=== PATIENT | female | born 1965 | race Caucasian/White ===

== ENCOUNTER 2025-10-29 10:40 | Emergency (ER) | payer OTHER, SELFPAY ==
--- OUTSIDE RECORDS SUMMARY | 2025-10-09 11:30 | XMS_ITS | Encounter Summary ---
Author Organization [facility] Address [address] [place] [address] Care Team Providers Care Middle Stitcher Name Role Phone Sameer Howard P.A.-C. Primary Care Provider Reason for Referral * MRI/CAT/PET Scan (Routine) - Closed Specialty Diagnoses / Procedures Referred By Omar bassett Referred To Contact Radiology Diagnoses Pain Knee Left Procedures MR Knee Left without IV Contrast Sameer Howard P.A.-C. [address] [place] [address] Phone: tel: fax: [facility] Region Referral ID Status Reason Start Date Expiration Date Visits Re quested Visits Authorized [id number] Closed 10/09/2025 01/09/2027 1 1 H WEIGHER * Outpatient (Routine) - Closed Specialty Diagnoses / Procedures Referred By Omar bassett Referred To Contact Diagnoses Pain Knee Left Procedures DX Knee Left with Flexion and Patella 4 Views Sameer Howard P.A.-C. [address] [place] [address] Phone: tel: fax: [facility] Region Referral ID Status Reason Start Date Expiration Date Visits Re quested Visits Authorized [id number] Closed 10/09/2025 01/09/2027 1 1 H WEIGHER * Outpatient (Routine) - Closed Specialty Diagnoses / Procedures Referred By Omar bassett Referred To Contact Orthopedic Surgery Diagnoses Pain Knee Left Sameer Howard P.A.-C. [address] [place] [address] Phone: tel: fax: [facility] Region Referral ID Status Reason Start Date Expiration Date Visits Re quested Visits Authorized [id number] Closed 10/09/2025 04/10/2027 1 1 Scheduling Instructions Ortho internal referral panel order, imaging before Consult visit H WEIGHER Reason for Visit * Reason Comments Follow-up Discuss lab results. Knee pain from standing at work. Discuss weight. * Appointment Request (Routine) - Closed Specialty Diagnoses / Procedures Referred By Omar bassett Referred To Contact Family Medicine Referral ID Status Reason Start Date Expiration Date Visits Re quested Visits Authorized [id number] Closed 09/26/2025 12/27/2026 1 1 Encounter Details Date Type Department Care Team (Late st Contact Info) Description 10/09/2025 11:30 AM CLOTH WEIGHER Office Visit Department of Family Medicine, [facility], in [place], [place] [address] [place] [phone] Sameer Howard P.A.-C. [address] [place] [phone] Nodule Thyroid (Primary Dx); General Medical Examination Adult; Fasciitis Plantar; Pain Knee Left; Hyperlipidemia Social History Tobacco Use Types Packs/Day Years Used Date Smoking Tobacco: Former Cigarettes 0 Q uit: 2006 Smokeless Tobacco: Never Tobacco Cessation:Counseling Given: Not Answered Alcohol Use Standard Drinks/Week Comments Yes 2 (1 standard drink = 0.6 oz pur e alcohol) Rare Humiliation, Afraid, Rape, and Kick questionnair e Answer Date Recorded Within the last year, have y ou been afraid of your partner or ex-partner? No 11/11/2021 Within the last year, have y ou been humiliated or emotionally abused in other ways by your partner or ex-partner? No Within the last year, have y ou been kicked, hit, slapped, or otherwise physically hurt by your partner or ex-partner? No 11/11/2021 Within the last year, have y ou been raped or forced to have any kind of sexual activity by your partner or ex-partner? No 11/11/2021 Hunger Vital Sign Answer Date Recorded Within the past 12 months, y ou worried that your food would run out before you got the money to buy more. Never true 09/13/20 23 Within the past 12 months, t he food you bought just didn't last and you didn't have money to get more. Never true 09/13/2023 PRAPARE - Transportation Answer Date Re corded In the past 12 months, has l ack of transportation kept you from medical appointments or from getting medications? No 08/27 In the past 12 months, has l ack of transportation kept you from meetings, work, or from getting things needed for daily living? No 09/13/2023 Housing Stability Answer Date Recorded What is your living situation today? I have a [facility] place to live 09/13/2023 Education Answer Date Recorded What is the highest level of school you have completed or the highest degree you have received? Associate degree: occupational, technical, or vocational program 09/17/2019 Comments No Sex and Gender Information Value Date Recorded Sex Assigned at Female 11/01/2021 9:22 PM CLOTH WEIGHER Legal Sex Female 2:38 AM CLOTH WEIGHER Gender Identity Female 03/29/2019 3:05 PM CDT Sexual Orientation Straight 03/29/2019 3: 05 PM CDT Occupation Industry Job Start Date Job End Date Not on file Not on file Not on file Not on file documented as of this encounter Last Filed Vital Signs Vital Sign Reading Time Taken Comments Blood Pressure 112/68 10/09/2025 11:30 AM CLOTH WEIGHER Pulse 67 10/09/2025 11:30 AM CLOTH WEIGHER Temperature 36.5 C (97.7 F) 10/09/2025 11:30 AM CLOTH WEIGHER Respiratory Rate 16 10/09/2025 11:30 AM CLOTH WEIGHER Oxygen Saturation - - Inhaled Oxygen Concentration - - Weight 72.3 kg (159 lb 6.3 oz) 10/09/2025 11:30 AM CLOTH WEIGHER Height 160.5 cm (5' 3.19) 10/09/2025 11:[address] Body Mass Index 28.07 10/09/2025 11:30 AM CLOTH WEIGHER documented in this encounter H&P Notes * Sameer Howard P.A.-C. - 10/09/2025 11:30 AM CST SUBJECTIVE CHIEF COMPLAINT / REASON FOR VISIT Melissa Hale is a 60 y.o. female who presents for evaluation of Follow- up (Discuss lab results. Knee pain from standing at work. Discuss weight.). HISTORY OF PRESENT ILLNESS Melissa presents today for her yearly history and physical. Her is retiring and she may have to change her insurance so she may not be able to come here after the first of the year. She has been struggling with a few different problems that she would like to address. She has had plantar fasciitis she has tried some different shoes as well as some insoles that were not beneficial. She also has some left knee pain that might be from walking out of the ordinary from her plantar fasciitis. This has been bothering her for couple years. He tries to exercise on a regular basis but has limitations. She says that taking this stairs has been difficult. She also has a history of a thyroid nodulethat is she says has been stable. She is due for a mammogram. She has a history of irritable bowel and overall this has been doing much better she sounds as though she has getting benefit from a probiotic that she has been taking Current Medications[1] Allergies[2] MEDICAL HISTORY Problem List[3] Surgical History[4] Social History[5] Family History[6] OBJECTIVE Vitals: 10/09/25 1130 BP: 112/68 BP Location: Left arm Patient Position: Sitting Cuff Size: Regular Pulse: 67 Resp: 16 Temp: 36.5 ??C TempSrc: Temporal Weight: 72.3 kg Height: 160.5 cm Body mass index is 28.07 kg/m??. PHYSICAL EXAMINATION General: Patient appears in no acute distress. ENT: TMs no erythema. Throat no erythema. Neck: No lymphadenopathy. Heart: Regular rate and rhythm. No murmurs. Lungs: Clear to auscultation. Abdomen: Soft and nontender to palpation. Feet: Her pulses are palpable bilaterally. She has discomfort to palpation in the anterior portion of her calcaneus consistent with plantar fasciitis Knees: Her left knee has some discomfort to palpation in the joint line. She has a positive Tdedy sign. ASSESSMENT / PLAN #1 Nodule Thyroid We talked about further evaluating this with a another ultrasound and lab work and she wants to hold off for now #2 General Medical Examination Adult She is due for a mammogram will get this set up. She brought in labs that were done at an outside facility that look good with the exception of some mild elevation of her lipids #3 Fasciitis Plantar I gave her a recommendation for a strap that will help to stretch her plantar fascia and also a compression sleeve that has been beneficial. If her symptoms worsen or not improve she will let us know #4 Pain Knee Left She would like to address this before the end of the year. I am going to do an x-ray today followedby an MRI and follow up with Orthopedics. If surgery would be required for a meniscus injury then am hopeful that this can be done before the end of the year. Today's visit could count as her preop history and physical. She would be ASA class two for surgery #5 Hyperlipidemia She has a strong family history of hyperlipidemia. She has a mild elevation of her LDL cholesterol up to 136. I stressed the importance of continuing to work on her diet and exercise. She wants to avoid statins because of a family history of reactions from statin medicines. Sameer Howard P.A.-C. [1] Current Outpatient Medications Medication Sig Dispense Refill acetaminophen (for_TYLENOL) 500 mg tablet Take 2 tablets (1,000 mg total) by mouth every 6 (six) hours as needed for pain. Not more than 4000 mg in 24 hours. 0 wmeobxz-wvxpweoqwguwy-qpowtpou (for_EXCEDRIN MIGRAINE) 250-250-65 mg per tablet Take 2 tablets by mouth every 6 (six) hours as needed. calcium carbonate-vitamin D3 (Calcium 600 with Vitamin D3) 600 mg-10 mcg (400 unit) tablet,chewableChew 2 tablets daily. cyanocobalamin (vitamin B-12) 1,000 mcg tablet Take 1,000 mcg by mouth daily. UNABLE TO FIND Take by mouth daily. Med Name: Dynamic Biotics- Probiotic Supplement 215mg daily. No current facility-administered medications for this visit. [2] Allergies Allergen Reactions Albuterol Other (see comments) No reaction noted in [facility] Naproxen Other (see comments) No reaction noted in [facility] Penicillins Other (see comments) No reaction noted in [facility] [3] Patient Active Problem List Diagnosis Mixed Irritable Bowel Syndrome Nodule Thyroid Gastro-Esophageal Reflux Disease With Esophagitis Without Bleeding Lesion Of Femoral Nerve Left Lower Limb Hyperlipidemia [4] Past Surgical History: Procedure Laterality Date APPENDECTOMY 1980 SECTION 07/04/1989 SECTION 12/31/1990 SECTION 04/30/1997 COLONOSCOPY 11/06/2017 Repeat in 10 years. [place], [place]. 2day miralax prep, quality good. CYSTOSCOPY 06/29/2011 ESOPHAGOSCOPY / EGD 11/06/2017 [place], [place]. FINE NEEDLE ASPIRATION Right 09/18/2007 Right mid thyroid nodule. Benign. HYSTERECTOMY 04/10/1998 LOOP ELECTRO EXCISION OF CERVIX 03/11/1998 TOTAL HYSTERECTOMY [5] Social History Tobacco Use Smoking status: Former Current packs/day: 0.00 Types: Cigarettes Quit date: 2005 Years since quittin.8 Smokeless tobacco: Never Vaping Use Vaping status: never used Substance Use Topics Alcohol use: Yes Alcohol/week: 2.0 standard drinks of alcohol Types: 2 Cans of beer per week Comment: Rare Drug use: Never [6] Family History Problem Relation Name Age of Onset Hypothyroidism Mother Hypertension Mother Hypothyroidism Sister Cervical cancer Sister Pancreatic cancer Grandfather H WEIGHER documented in this encounter Plan of Treatment Scheduled Referrals Name Type Priority Associated Diagnoses Order Schedule Orthopedic Surgery - Knee (no prior replacement) surgical consult (clinic) Outpatient Referral Routine Pain Knee Left Expected: 10/09/2025 (Approximate), Expires: 01/09/2027 documented as of this encounter Results * MR Knee Left without IV Contrast (10/14/2025 2:04 PM CLOTH WEIGHER) Anatomical Region Laterality Modality Lower Extremity, Knee, Muscu loskeletal RST LOS, Musculoskeletal ARZ LOS, Muskuloskeletal FLA LOS Left Magne tic Resonance Impressions 10/14/2025 2:42 PM CLOTH WEIGHER 1. Horizontal tear lateral meniscus communicating with the femoral articular surface. 2. Intrasubstance horizontal tear medial meniscus without appreciable communication to an articular surface. 3. 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 4. Small knee joint effusion. Narrative 10/14/2025 2:42 PM CLOTH WEIGHER EXAM: MR KNEE LEFT WITHOUT IV CONTRAST COMPARISON:X-ray September 2025 FINDINGS: Normal anterior cruciate ligament. Normal posterior cruciate ligament. Normal medial collateral ligament. Normal lateral collateral ligament. Normal patellar and distal quadriceps tendons. Intrasubstance horizontal tear medial meniscus posterior horn/body junction (series 6 image 9) without appreciable communication to an articular surface. Horizontal tear lateral meniscal body and anterior horn communicating with the femoral articular surface (for example series 6 image 15). Medial Compartment: Moderate degeneration with grade II/III chondromalacia of weightbearing articular cartilage and degenerative marginal osteophyte formation. Lateral Compartment: Mild degeneration with generally low-grade chondromalacia and small marginal osteophytes. Patellofemoral Compartment: Moderate degeneration with grade II/III chondromalacia patellar eminence and medial patellar facet. Small marginal osteophytes. Greater than typical quantity of knee joint fluid, consistent with a small effusion. No popliteal cyst. No significant muscle atrophy or intramuscular edema. No evidence of acute or healing fracture. No aggressive appearing skeletal lesion. Procedure Note Braden Garcia M.D. - 10/14/2025 EXAM: MR KNEE LEFT WITHOUT IV CONTRAST COMPARISON:X-ray September 2025 FINDINGS: Normal anterior cruciate ligament. Normal posterior cruciateligament. Normal medial collateral ligament. Normal lateral collateralligament. Normal patellar and distal quadriceps tendons. Intrasubstance horizontal tear medial meniscus posterior horn/bodyjunction (series 6 image 9) without appreciable communication to anarticular surface. Horizontal tear lateral meniscal body and anterior horncommunicating with the femoral articular surface (for example series 6image 15). Medial Compartment: Moderate degeneration with grade II/III chondromalaciaof weightbearing articular cartilage and degenerative marginal osteophyteformation. Lateral Compartment: Mild degeneration with generally low-gradechondromalacia and small marginal osteophytes. Patellofemoral Compartment: Moderate degeneration with grade II/IIIchondromalacia patellar eminence and medial patellar facet. Small marginalosteophytes. Greater than typical quantity of knee joint fluid, consistent with a smalleffusion. No popliteal cyst. No significant muscle atrophy orintramuscular edema. No evidence of acute or healing fracture. No aggressive appearing skeletallesion. IMPRESSION: 1. Horizontal tear lateral meniscus communicating with the femoralarticular surface. 2. Intrasubstance horizontal tear medial meniscus without appreciablecommunication to an articular surface. 3. 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 4. Small knee joint effusion. us Sameer Howard P.A.-C. IMG MRI PROCEDURES Fin al Result * DX Knee Left with Flexion and Patella 4 Views (10/09/2025 12:46 PM CLOTH WEIGHER) Anatomical Region Laterality Modality Lower Extremity, Knee, Muscu loskeletal RST LOS, Musculoskeletal ARZ LOS, Muskuloskeletal FLA LOS Left Digit al Radiography Impressions 10/09/2025 1:29 PM CLOTH WEIGHER No appreciable fracture. Moderate knee joint effusion. 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 Narrative 10/09/2025 1:29 PM CLOTH WEIGHER EXAM: DX KNEE LEFT FLEXION AND PATELLA 4 VIEWS COMPARISON: None FINDINGS: No appreciable fracture. No dislocation. Joint spaces appear intact. Mild to moderate tricompartmental joint space tearing with subtle osteophytic spurring. Moderate knee joint effusion. No patellar tilt or subluxation. Procedure Note Levi Goldberg M.D. - 10/09/2025 EXAM: DX KNEE LEFT FLEXION AND PATELLA 4 VIEWS COMPARISON: None FINDINGS: No appreciable fracture. No dislocation. Joint spaces appear intact. Mildto moderate tricompartmental joint space tearing with subtle osteophyticspurring. Moderate knee joint effusion. No patellar tilt or subluxation. IMPRESSION: No appreciable fracture. Moderate knee joint effusion. Mild to moderateosteoarthritic changes of the knee. Sameer Howard P.A.-C. IMG DIAGNOSTIC IMAGING PROCEDURES Final Result documented in this encounter Visit Diagnoses Diagnosis Nodule Thyroid- Primary General Medical Examination Adult Fasciitis Plantar Pain Knee Left Hyperlipidemia Pain Knee Left Pain Knee Left documented in this encounter Care Teams Middle Stitcher Relationship Specialty Start Date End Date Sameer Howard P.A.-C. [address] [place] [phone] PCP - General Family Medicine 09/16/19 documented as of this encounter
--- OUTSIDE RECORDS SUMMARY | 2025-10-09 12:18 | XMS_ITS | Encounter Summary ---
Author Organization [facility] Address [address] [place] [address] Care Team Providers Care Critical Care Unit Nurse Name Role Phone Sameer Howard P.A.-C. Primary Care Provider Reason for Referral * Outpatient (Routine) - Closed Specialty Diagnoses / Procedures Referred By Omar bassett Referred To Contact Diagnoses Pain Knee Left Procedures DX Knee Left with Flexion and Patella 4 Views Sameer Howard P.A.-C. [address] [place] [address] Phone: tel: fax: [facility] Region Referral ID Status Reason Start Date Expiration Date Visits Re quested Visits Authorized [id number] Closed 10/09/2025 01/09/2027 1 1 ING MACHINE UPKEEP MECHANIC Reason for Visit * Outpatient (Routine) - Closed Specialty Diagnoses / Procedures Referred By Omar bassett Referred To Contact Diagnoses Pain Knee Left Procedures DX Knee Left with Flexion and Patella 4 Views Sameer Howard P.A.-C. [address] [place] [address] Phone: tel: fax: [facility] Region Referral ID Status Reason Start Date Expiration Date Visits Re quested Visits Authorized [id number] Closed 10/09/2025 01/09/2027 1 1 Encounter Details Date Type Department Care Team (Latest Contact Info) Description 10/09/2025 12:18 PM FORMING MACHINE UPKEEP MECHANIC - 10/09/2025 11:59 PM FORMING MACHINE UPKEEP MECHANIC Hospital Encounter Department of Radiology in [place], [place] [address] [place] [phone] Sameer Howard P.A.-C. [address] [place] [phone] Pain Knee Left Discharge Disposition: Home or Self Care Social History Tobacco Use Types Packs/Day Years Used Date Smoking Tobacco: Former Cigarettes 0 Q uit: 2006 Smokeless Tobacco: Never Alcohol Use Standard Drinks/Week Comments Yes 2 [...] your living situation today? I have a [facility] place to live 09/13/2023 Education Answer Date Recorded What is the highest level of school you have completed or the highest degree you have received? Associate degree: occupational, technical, or vocational program 09/17/2019 Comments No Sex and Gender Information Value Date Recorded Sex Assigned at Female 11/01/2021 9:22 PM FORMING MACHINE UPKEEP MECHANIC Legal Sex Female 2:38 AM FORMING MACHINE UPKEEP MECHANIC Gender Identity Female 03/29/2019 3:05 PM CDT Sexual Orientation Straight 03/29/2019 3: 05 PM CDT Occupation Industry Job Start Date Job End Date Not on file Not on file Not on file Not on file documented as of this encounter Medications at Time of Discharge acetaminophen (for_TYLENOL) 500 mg tablet Take 2 tablets (1,000 mg total) by mouth every 6 (six) hours as needed for pain. Not more than 4000 mg in 24 hours. 0 02/16/2018 aspirin-acetamin ophen-caffeine (for_EXCEDRIN MIGRAINE) 250-250-65 mg per tablet Take 2 tablets by mouth every 6 (six) hours as needed. 09/09/2014 calcium carbonate-vitami n D3 (Calcium 600 with Vitamin D3) 600 mg-10 mcg (400 unit) tablet,chewable Chew 2 tablets daily. cyanocobalamin (vitamin B-12) 1,000 mcg tablet Take 1,000 mcg by mouth daily. UNABLE TO FIND Take by mouth daily. Med Name: Dynamic Biotics- Probiotic Supplement 215mg daily. documented as of this encounter Plan of Treatment Not on file documented as of this encounter Procedures Procedure Name Priority Date/Time Associated Diagnosis Comments DX KNEE LEFT FLEXION AND PATELLA 4 VIEWS RAD - Routine (most inpatients and all outpatients) 10/09/2025 12:46 PM FORMING MACHINE UPKEEP MECHANIC Pain Knee Left documented in this encounter Results * DX Knee Left with Flexion and Patella 4 Views (10/09/2025 12:46 PM FORMING MACHINE UPKEEP MECHANIC) Anatomical Region Laterality Modality Lower Extremity, Knee, Muscu loskeletal RST LOS, Musculoskeletal ARZ LOS, Muskuloskeletal FLA LOS Left Digit al Radiography Impressions 10/09/2025 1:29 PM FORMING MACHINE UPKEEP MECHANIC No appreciable fracture. Moderate knee joint effusion. 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 Narrative 10/09/2025 1:29 PM FORMING MACHINE UPKEEP MECHANIC EXAM: DX KNEE LEFT FLEXION AND PATELLA [...] documented in this encounter Visit Diagnoses Diagnosis Pain Knee Left documented in this encounter Care Teams Critical Care Unit Nurse Relationship Specialty Start Date End Date Sameer Howard P.A.-C. [address] [place] [phone] PCP - General Family Medicine 09/16/19 documented as of this encounter
--- OUTSIDE RECORDS SUMMARY | 2025-10-14 12:55 | XMS_ITS | Encounter Summary ---
Author Organization [facility] Address [address] [place] [address] Care Team Providers Care Video Rental Clerk Name Role Phone Sameer Howard P.A.-C. Primary Care Provider Reason for Referral * MRI/CAT/PET Scan (Routine) - Closed Specialty Diagnoses / Procedures Referred By Omar bassett Referred To Contact Radiology Diagnoses Pain Knee Left Procedures MR Knee Left without IV Contrast Sameer Howard P.A.-C. [address] [place] [phone] Phone: tel: fax: [facility] Region Referral ID Status Reason Start Date Expiration Date Visits Re quested Visits Authorized [id number] Closed 10/09/2025 01/09/2027 1 1 RETAILER Reason for Visit * MRI/CAT/PET Scan (Routine) - Closed Specialty Diagnoses / Procedures Referred By Omar bassett Referred To Contact Radiology Diagnoses Pain Knee Left Procedures MR Knee Left without IV Contrast Sameer Howard P.A.-CJuhi [address] [place] [address] Phone: tel: fax: [facility] Region Referral ID Status Reason Start Date Expiration Date Visits Re quested Visits Authorized [id number] Closed 10/09/2025 01/09/2027 1 1 Encounter Details Date Type Department Care Team (Latest Contact Info) Description 10/14/2025 12:55 PM WEB RETAILER - 10/14/2025 11:59 PM WEB RETAILER Hospital Encounter Department of Radiology in [place], [place] [address], [place] [phone] Sameer Howard P.A.-C. [address] [place] [phone] Pain Knee Left Discharge Disposition: Home or Self Care Social History Tobacco Use Types Packs/Day Years Used Date Smoking Tobacco: Former Cigarettes 0 Q uit: 2005 Smokeless Tobacco: Never Alcohol Use Standard Drinks/Week [...] the money to buy more. Never true 10/13/20 25 Within the past 12 months, t he food you bought just didn't last and you didn't have money to get more. Never true 10/13/2025 PRAPARE - Transportation Answer Date Re corded In the past 12 months, has l ack of transportation kept you from medical appointments or from getting medications? No 09/27 In the past 12 months, has l ack of transportation kept you from meetings, work, or from getting things needed for daily living? Yes 10/13/2025 [facility] Utilities Answer Date Recorded In the past 12 months has th e electric, gas, oil, or water company threatened to shut off services in your home? No 10/13/2025 Housing Stability Answer Date Recorded What is your living situation today? I have a [place] place to live 10/13/2025 Education Answer Date Recorded What is the highest level of school you have completed or the highest degree you have received? Associate degree: occupational, technical, or vocational program 09/17/2019 Comments No Sex and Gender Information Value Date Recorded Sex Assigned at Female 11/01/2021 9:22 PM WEB RETAILER Legal Sex Female 2:38 AM WEB RETAILER Gender Identity Female 03/29/2019 3:05 PM CDT [...] Procedure Name Priority Date/Time Associated Diagnosis Comments MR KNEE LEFT WITHOUT IV CONTRAST RAD - Routine (most inpatients and all outpatients) 10/14/2025 2:04 PM WEB RETAILER Pain Knee Left documented in this encounter Results * MR Knee Left without IV Contrast (10/14/2025 2:04 PM WEB RETAILER) Anatomical Region Laterality Modality Lower Extremity, Knee, Muscu loskeletal RST LOS, Musculoskeletal ARZ LOS, Muskuloskeletal FLA LOS Left Magne tic Resonance Impressions 10/14/2025 2:42 PM WEB RETAILER 1. Horizontal tear lateral meniscus communicating with the femoral articular surface. 2. Intrasubstance horizontal tear medial meniscus without appreciable communication to an articular surface. 3. 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 4. Small knee joint effusion. Narrative 10/14/2025 2:42 PM WEB RETAILER EXAM: MR KNEE LEFT WITHOUT IV CONTRAST [...] tricompartment degeneration. 4. Small knee joint effusion. Sameer Howard P.A.-C. IMG MRI PROCEDURES Fin al Result documented in this encounter Visit Diagnoses Diagnosis Pain Knee Left documented in this encounter Care Teams Video Rental Clerk Relationship Specialty Start Date End Date Sameer Howard P.A.-C. [address] [place] [phone] PCP - General Family Medicine 09/16/19 documented as of this encounter
--- OUTSIDE RECORDS SUMMARY | 2025-10-22 15:30 | XMS_ITS | Encounter Summary ---
Author Organization [facility] Address [address] [place] [address] Care Team Providers Care Still Operator Helper Name Role Phone Sameer Howard P.A.-C. Primary Care Provider Reason for Visit * Reason Comments Dizziness Had a fall in the ower yesterday and has been dizzy since. * Appointment Request (Routine) - Closed Specialty Diagnoses / Procedures Referred By Omar bassett Referred To Contact Family Medicine Referral ID Status Reason Start Date Expiration Date Visits Re quested Visits Authorized [id number] Closed 10/21/2025 01/21/2027 1 1 Encounter Details Date Type Department Care Team (Late st Contact Info) Description 10/22/2025 3:30 PM WASH TEST CHECKER Office Visit Department of Family Medicine, [facility], in [place], [place] [address] [place] [phone] Sameer Howard P.A.-C. [address] [place] [phone] Vertigo (Primary Dx); Vertigo Benign Paroxysmal Positional Left Social History Tobacco Use Types Packs/Day Years Used Date Smoking Tobacco: Former Cigarettes 0 Q uit: 2006 Smokeless Tobacco: Never Alcohol Use Standard Drinks/Week Comments Yes 4 (1 standard drink = 0.6 oz pur [...] things needed for daily living? Yes 10/13/2025 [facility] Utilities Answer Date Recorded In the past 12 months has [facility] electric, gas, oil, or water company threatened to shut off services in your home? No 10/13/2025 Housing Stability Answer Date Recorded What is your living situation today? I have a [facility] place to live 10/13/2025 Education Answer Date Recorded What is the highest level of school you have completed or the highest degree you have received? Associate degree: occupational, technical, or vocational program 09/17/2019 Comments No Sex and Gender Information Value Date Recorded Sex Assigned at Female 11/01/2021 9:22 PM WASH TEST CHECKER Legal Sex Female 2:38 AM WASH TEST CHECKER Gender Identity Female 03/29/2019 3:05 PM CDT Sexual Orientation Straight 03/29/2019 3: 05 PM CDT Occupation Industry Job Start Date Job End Date Not on file Not on file Not on file Not on file documented as of this encounter Last Filed Vital Signs Vital Sign Reading Time Taken Comments Blood Pressure 108/71 10/22/2025 3:16 PM WASH TEST CHECKER Pulse 63 10/22/2025 3:16 PM WASH TEST CHECKER Temperature 36.6 C (97.9 F) 10/22/2025 3:16 PM WASH TEST CHECKER Respiratory Rate 20 10/22/2025 3:1 6 PM WASH TEST CHECKER Oxygen Saturation - - Inhaled Oxygen Concentration - - Weight 71.2 kg (156 lb 15.5 oz) 10/22/2025 3:16 PM WASH TEST CHECKER Height 162 cm (5' 3.78) 10/22/2025 3:16 PM WASH TEST CHECKER Body Mass Index 27.13 10/22/2025 3:16 PM WASH TEST CHECKER documented in this encounter Patient Instructions * Attachments The following attachments cannot be sent through Care Everywhere. * Exercises for Horizontal Canal Benign Paroxysmal Positional Vertigo (BPPV) documented in this encounter Progress Notes * Sameer Howard P.A.-C. - 10/22/2025 3:30 PM CST SUBJECTIVE CHIEF COMPLAINT / REASON FOR VISIT Melissa Hale is a 60 y.o. female who presents for evaluation of Dizziness (Had a fall in the shower yesterday and has been dizzy since. ). HISTORY OF PRESENT ILLNESS Melissa presents today following a near syncopal episode. She got up in the morning yesterday and wasin the shower she felt a sudden onset of lightheadedness and fell down in his shower but said she never passed out. She then stood up and felt lightheaded again but she was able to finish her shower. She says she still has a little tired since then she never hit her head. She does have a history of migraines but they have not been particularly worse as of recently. She says she tries to keep well hydrated over the last day she has drank about 74 oz of water. She says her urine is normally pretty clear she denies any other associated symptoms other than the ongoing fatigue she does have a history of a thyroid nodule. OBJECTIVE Vitals: 10/22/25 1516 BP: 108/71 BP Location: Left arm Patient Position: Sitting Cuff Size: Large Pulse: 63 Resp: 20 Temp: 36.6 ??C TempSrc: Temporal Weight: 71.2 kg Height: 162 cm Body mass index is 27.13 kg/m??. PHYSICAL EXAMINATION General: Patient appears in no acute distress. ENT: TMs no erythema. Throat no erythema. Neck: No lymphadenopathy. No thyroid masses. Heart: Regular rate and rhythm. No murmurs. Lungs: Clear to auscultation. Abdomen: Soft and nontender to palpation. I did do the Horicon-Hallpike maneuver which was positive for significant vertigo with her neck hyperextended in the leftward gaze. In an attempt to reproduce this I was unable to so I did not complete the Meg maneuver ASSESSMENT / PLAN #1 Vertigo I am going to give her some meclizine for her vertigo. 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 If her symptoms worsen at all or do not continue to improve over the next couple days she will let us know and we will consider further evaluation with possible imaging. Today I will check some blood work to look for other possible etiologies of her symptoms including a CBC metabolic panel and TSH #2 Vertigo Benign Paroxysmal Positional Left I gave her the information do the Meg maneuver if her symptoms reoccur. Total time spent 30 minutes Sameer Howard P.A.-C. TEST CHECKER documented in this encounter Plan of Treatment Not on file documented as of this encounter Results * Basic Metabolic Panel (10/22/2025 4:01 PM WASH TEST CHECKER) Potassium, P 5.0 3.6 - 5.2 mmol/L 10/22/2025 5:58 PM WASH TEST CHECKER OWAT Sodium, P 140 135 - 145 mmol/L 10/22/2025 5:58 PM WASH TEST CHECKER OWAT Chloride, P 107 98 - 107 mmol/L 10/22/2025 5:58 PM WASH TEST CHECKER OWAT Bicarbonate, P 24 22 - 29 mmol/L 10/22/2025 5:58 PM WASH TEST CHECKER OWAT Anion Gap, P 9 7 - 15 10/22/2025 5:58 PM WASH TEST CHECKER OWAT BUN (Blood Urea Nitrogen), P 18 6 - 21 mg/dL 10/22/2025 5:58 PM WASH TEST CHECKER OWAT Creatinine 0.73 0.59 - 1.04 mg/dL 10/22/2025 5:58 PM WASH TEST CHECKER OWAT Estimated GFR (eGFR) >90 >=60 mL/min/BSA 10/22/2025 5:58 PM WASH TEST CHECKER OWAT Comment: Estimated GFR calculated using the 2020 CKD_EPI creatinine equation. Calcium, Total, P 9.8 8.8 - 10.2 mg/dL 10/22/2025 5:58 PM WASH TEST CHECKER OWAT Glucose, P 97 70 - 140 mg/dL 10/22/2025 5:58 PM WASH TEST CHECKER OWAT Blood (Blood, Venous) 10/22/2025 4:01 PM WASH TEST CHECKER 10/22/2025 5:31 PM WASH TEST CHECKER us Sameer Howard P.A.-C. LAB BLOOD ADD-ON Final Result [facility] [address] [address], [facility] OWAT [facility] in [place] [address] [place] [address] * CBC with Differential, Blood (10/22/2025 4:01 PM WASH TEST CHECKER) Hemoglobin 14.0 11.6 - 15.0 g/dL 10/22/2025 5:35 PM WASH TEST CHECKER OWAT Hematocrit 42.8 35.5 - 44.9 % 10/22/2025 5:35 PM WASH TEST CHECKER OWAT Erythrocytes 4.71 3.92 - 5.13 x10(12)/L 10/22/2025 5:35 PM WASH TEST CHECKER OWAT MCV 90.9 78.2 - 97.9 fL 10/22/2025 5:35 PM WASH TEST CHECKER OWAT RBC Distrib Width 13.1 12.2 - 16.1 % 10/22/2025 5:35 PM WASH TEST CHECKER OWAT Platelet Count 223 157 - 371 x10(9)/L 10/22/2025 5:35 PM WASH TEST CHECKER OWAT Leukocytes 6.4 3.4 - 9.6 x10(9)/L 10/22/2025 5:35 PM WASH TEST CHECKER OWAT Neutrophils 3.16 1.56 - 6.45 x10(9)/L 10/22/2025 5:35 PM WASH TEST CHECKER OWAT Lymphocytes 2.72 0.95 - 3.07 x10(9)/L 10/22/2025 5:35 PM WASH TEST CHECKER OWAT Monocytes 0.39 0.26 - 0.81 x10(9)/L 10/22/2025 5:35 PM WASH TEST CHECKER OWAT Eosinophils 0.12 0.03 - 0.48 x10(9)/L 10/22/2025 5:35 PM WASH TEST CHECKER OWAT Basophils 0.05 0.01 - 0.08 x10(9)/L 10/22/2025 5:35 PM WASH TEST CHECKER OWAT Blood (Blood, Venous) 10/22/2025 4:01 PM WASH TEST CHECKER 10/22/2025 5:31 PM WASH TEST CHECKER us Sameer Richmond.-C. LAB BLOOD ADD-ON Final Result [facility] [address] [address], [facility] OWAT [facility] in [place] [address] [place] [id number] * S-TSH (Thyroid-Stimulating Hormone - Sensitive) (10/22/2025 4:01 PM WASH TEST CHECKER) TSH, Sensitive 1.2 0.3 - 4.2 mIU/L 10/22/2025 6:07 PM WASH TEST CHECKER OWAT Blood (Blood, Venous) 10/22/2025 4:01 PM WASH TEST CHECKER 10/22/2025 5:31 PM WASH TEST CHECKER us Sameer JaneA.-C. LAB BLOOD ADD-ON Final Result [facility] [address] [place] [address], [facility] in [place] [address] [place] [address] documented in this encounter Visit Diagnoses Diagnosis Vertigo- Primary Vertigo Benign Paroxysmal Positional Left documented in this encounter Care Teams Still Operator Helper Relationship Specialty Start Date End Date Sameer Howard P.A.-C. [address] [place] [phone] PCP - General Family Medicine 09/16/19 documented as of this encounter
--- OUTSIDE RECORDS SUMMARY | 2025-10-22 15:54 | XMS_ITS | Encounter Summary ---
Author Organization [facility] Address [address] [place] [address] Care Team Providers Care Senior Cognos Developer Name Role Phone Sameer Howard P.A.-C. Primary Care Provider Encounter Details Date Type Department Care Team (Latest Contact Info) Description 10/22/2025 3:54 PM BARREL WATERER - 10/22/2025 11:59 PM [facility] Hospital Encounter Department of Laboratory Medicine in [place], [place] [address] [place] [phone] Sameer Howard P.A.-C. [address] [place] [phone] Vertigo Discharge Disposition: Home or Self Care Social [...] things needed for daily living? Yes 10/13/2025 [facility] Utilities Answer Date Recorded In the past 12 months has [employer] electric, gas, oil, or water company threatened to shut off services in your home? No 10/13/2025 Housing Stability Answer Date Recorded What is your living situation today? I have a [facility] place to live 10/13/2025 Education Answer Date Recorded What is the highest level of school you have completed or the highest degree you have received? Associate degree: occupational, technical, or vocational program 09/17/2019 Comments No Sex and Gender Information Value Date Recorded Sex Assigned at Female 11/01/2021 9:22 PM BARREL WATERER Legal Sex Female 2:38 AM BARREL WATERER Gender Identity Female 03/29/2019 3:05 PM CDT [...] tablet Take 1,000 mcg by mouth daily. meclizine (Antivert) 25 mg tablet Take 1 tablet (25 mg total) by mouth 3 (three) times a day as needed for dizziness. 30 tablet 10/22/2025 UNABLE TO FIND Take by mouth daily. Med Name: [employer]- Probiotic Supplement 215mg daily. documented as of this encounter Plan of Treatment Not on file documented as of this encounter Procedures Procedure Name Priority Date/Time Associated Diagnosis Comments CBC WITH DIFFERENTIAL, B Routine 10/22/2025 4:01 PM BARREL WATERER Vertigo THYROID-STIMULATING HORMONE-SENSITIVE (S-TSH) Routine 10/22/2025 4:01 PM BARREL WATERER Vertigo BASIC METABOLIC PANEL, S/P Routine 10/22/2025 4:01 PM BARREL WATERER Vertigo documented in this encounter Results * Basic Metabolic Panel (10/22/2025 4:01 PM BARREL WATERER) Potassium, P 5.0 3.6 - 5.2 mmol/L 10/22/2025 5:58 PM BARREL WATERER OWAT Sodium, P 140 135 - 145 mmol/L 10/22/2025 5:58 PM BARREL WATERER OWAT Chloride, P 107 98 - 107 mmol/L 10/22/2025 5:58 PM BARREL WATERER OWAT Bicarbonate, P 24 22 - 29 mmol/L 10/22/2025 5:58 PM BARREL WATERER OWAT Anion Gap, P 9 7 - 15 10/22/2025 5:58 PM BARREL WATERER OWAT BUN (Blood Urea Nitrogen), P 18 6 - 21 mg/dL 10/22/2025 5:58 PM BARREL WATERER OWAT Creatinine 0.73 0.59 - 1.04 mg/dL 10/22/2025 5:58 PM BARREL WATERER OWAT Estimated GFR (eGFR) >90 >=60 mL/min/BSA 10/22/2025 5:58 PM BARREL WATERER OWAT Comment: Estimated GFR calculated using the 2020 CKD_EPI creatinine equation. Calcium, Total, P 9.8 8.8 - 10.2 mg/dL 10/22/2025 5:58 PM BARREL WATERER OWAT Glucose, P 97 70 - 140 mg/dL 10/22/2025 5:58 PM BARREL WATERER OWAT Blood (Blood, Venous) 10/22/2025 4:01 PM BARREL WATERER 10/22/2025 5:31 PM BARREL WATERER us Sameer Howard P.A.-C. LAB BLOOD ADD-ON Final Result [facility] [address], [place] [address], [facility] OWAT [facility] [place] [address], [place] [address] * CBC with Differential, Blood (10/22/2025 4:01 PM BARREL WATERER) Hemoglobin 14.0 11.6 - 15.0 g/dL 10/22/2025 5:35 PM BARREL WATERER OWAT Hematocrit 42.8 35.5 - 44.9 % 10/22/2025 5:35 PM BARREL WATERER OWAT Erythrocytes 4.71 3.92 - 5.13 x10(12)/L 10/22/2025 5:35 PM BARREL WATERER OWAT MCV 90.9 78.2 - 97.9 fL 10/22/2025 5:35 PM BARREL WATERER OWAT RBC Distrib Width 13.1 12.2 - 16.1 % 10/22/2025 5:35 PM BARREL WATERER OWAT Platelet Count 223 157 - 371 x10(9)/L 10/22/2025 5:35 PM BARREL WATERER OWAT Leukocytes 6.4 3.4 - 9.6 x10(9)/L 10/22/2025 5:35 PM BARREL WATERER OWAT Neutrophils 3.16 1.56 - 6.45 x10(9)/L 10/22/2025 5:35 PM BARREL WATERER OWAT Lymphocytes 2.72 0.95 - 3.07 x10(9)/L 10/22/2025 5:35 PM BARREL WATERER OWAT Monocytes 0.39 0.26 - 0.81 x10(9)/L 10/22/2025 5:35 PM BARREL WATERER OWAT Eosinophils 0.12 0.03 - 0.48 x10(9)/L 10/22/2025 5:35 PM BARREL WATERER OWAT Basophils 0.05 0.01 - 0.08 x10(9)/L 10/22/2025 5:35 PM BARREL WATERER OWAT Blood (Blood, Venous) 10/22/2025 4:01 PM BARREL WATERER 10/22/2025 5:31 PM BARREL WATERER us Sameer Howard P.A.-C. LAB BLOOD ADD-ON Final Result Performing Organization Address [facility]/ZIP Co de Phone Number [facility] [address], [place] [address], [facility] [place] [address], [place] [address] * S-TSH (Thyroid-Stimulating Hormone - Sensitive) (10/22/2025 4:01 PM BARREL WATERER) TSH, Sensitive 1.2 0.3 - 4.2 mIU/L 10/22/2025 6:07 PM BARREL WATERER OWAT Blood (Blood, Venous) 10/22/2025 4:01 PM BARREL WATERER 10/22/2025 5:31 PM BARREL WATERER us Sameer Howard P.A.-C. LAB BLOOD ADD-ON Final Result Performing Organization Address [facility]/ZIP Co de Phone Number [facility] [address] [place] [address], [facility] [place] [address], [place] [address] documented in this encounter Visit Diagnoses Diagnosis Vertigo documented in this encounter Care Teams Senior Cognos Developer Relationship Specialty Start Date End Date Sameer Howard P.A.-C. [address] [place] [address], [place] [phone] PCP - General Family Medicine 09/16/19 documented as of this encounter
--- OUTSIDE RECORDS SUMMARY | 2025-10-24 11:30 | XMS_ITS | Encounter Summary ---
Author Organization [facility] Address [address] [place] [address] Care Team Providers Care Control Clerk Repairs Name Role Phone Sameer Howard P.A.-C. Primary Care Provider Reason for Referral * Outpatient (Routine) - Authorized Specialty Diagnoses / Procedures Referred By Contac t Referred To Contact Diagnoses Pain Knee Left Chondromalacia Left Knee Deranged Medial Meniscus Left Deranged Lateral Meniscus Left Procedures kae-ietc-thpmjmow-elbow arthrocentesis: L knee joint Levi Gonzalez M.D. [address] [place] [address] Phone: tel: fax: [facility] Region Referral ID Status Reason Start Date Expiration Date V isits Requested Visits Authorized [id number] Authorized 10/24/2025 01/24/2027 1 1 NETMAKER APPRENTICE Reason for Visit * Reason Comments Pain Swelling * Outpatient (Routine) - Closed Specialty Diagnoses / Procedures Referred By Contac t Referred To Contact Orthopedic Surgery Diagnoses Pain Knee Left Sameer Howard P.A.-CJuhi [address] [place] [phone] Phone: tel: fax: [facility] Region Referral ID Status Reason Start Date Expiration Date Visits Re quested Visits Authorized [id number] Closed 10/09/2025 04/10/2027 1 1 Encounter Details Date Type Department Care Team (Latest Contact Info) Description 10/24/2025 11:30 AM CABINETMAKER APPRENTICE Comprehensive Visit Department of Orthopedic Surgery in [place], [place] [address] [place] [address] Levi Gonzalez M.D. [address] [place] [address] Pain Knee Left (Primary Dx); Chondromalacia Left Knee; Deranged Medial Meniscus Left; Deranged Lateral Meniscus Left Social History Tobacco Use Types Packs/Day [...] things needed for daily living? Yes 10/13/2025 [facility] Utilities Answer Date Recorded In the past 12 months has th e electric, gas, oil, or water company threatened to shut off services in your home? No 10/13/2025 Housing Stability Answer Date Recorded What is your living situation today? I have a [facility] place to live 10/13/2025 Education Answer Date Recorded What is the highest level of school you have completed or the highest degree you have received? Associate degree: occupational, technical, or vocational program 09/17/2019 Comments No Sex and Gender Information Value Date Recorded Sex Assigned at Female 11/01/2021 9:22 PM CABINETMAKER APPRENTICE Legal Sex Female 2:38 AM CABINETMAKER APPRENTICE Gender Identity Female 03/29/2019 3:05 PM CDT Sexual Orientation Straight 03/29/2019 3: 05 PM CDT Occupation Industry Job Start Date Job End Date Not on file Not on file Not on file Not on file documented as of this encounter Last Filed Vital Signs Vital Sign Reading Time Taken Comments Blood Pressure - - Pulse - - Temperature - - Respiratory Rate - - Oxygen Saturation - - Inhaled Oxygen Concentration - - Weight 71.8 kg (158 lb 4.6 oz) 10/24/2025 11:21 AM CABINETMAKER APPRENTICE Height 158.3 cm (5' 2.32) 10/24/2025 11:[address] Body Mass Index 28.65 10/24/2025 11:21 AM CABINETMAKER APPRENTICE documented in this encounter Procedure Notes * Levi Gonzalez M.D. - 10/24/2025 11:30 AM CSTAssociated Order(s): xdo-vsvz-agqhhqtz-elbow arthrocentesis: L knee joint Post-Procedure Diagnose(s): Pain Knee Left; Deranged Lateral Meniscus Left; Deranged Medial Meniscus Left; Chondromalacia Left Knee Knee site- L knee joint : aspiration and diagnostic-therapeutic injection Performed by: Levi Gonzalez M.D. Authorized by: Levi Gonzalez M.D. PROCEDURE DETAILS Indications: Primary Osteoarthritis of Left Knee Procedure Location knee Knee site: L knee joint Site prep: patient was prepped and draped in usual sterile fashion Patient position: seated Procedural approach: anterolateral Procedure performed: aspiration and diagnostic-therapeutic injection Needle gauge: 22 G, length: 1 1/2 in Procedural Medication The following medications were administered at the target site(s) Local anesthetic: 8 mL lidocaine (PF) 10 mg/mL (1 %) Corticosteroid: 80 mg triamcinolone acetonide 40 mg/mL CONSENT Consent obtained: written (Risks, benefits and alternatives were discussed and a written Informed Consent was obtained. Please see Informed Consent form for further details.) UNIVERSAL PROTOCOL All relevant documentation and testing were reviewed and available. All required blood products, implants, devices and or special equipment were made available as applicable. Pre-procedure verification was conducted and the correct site was marked if required. A fire risk and smoke assessment were done as applicable. The procedural time-out to verify correct patient, correct side/site, and procedure was conducted prior to performing the procedure and confirmed in a procedural pause. PRE-PROCEDURE DETAILS Procedure purpose: therapeutic Indications: Primary Osteoarthritis of Left Knee Appropriate hand hygiene, gown, cap, mask, protective eyewear, sterile gloves, skin preparation, sterile drape, and strict aseptic technique were utilized as applicable for the procedure. Site preparation: chlorhexidine/alcohol SEDATION / ANESTHESIA Anesthesia method: none POST-PROCEDURE DETAILS Procedure completed successfully: yes Complications: no apparent complications Post-procedure instructions: post-procedure activity instructions provided and avoid submersion of procedure site for 48 hours Discharge instructions: dressing care and medications and side effects NETMAKER APPRENTICE documented in this encounter Consult Notes * Levi Gonzalez M.D. - 10/24/2025 11:30 AM CST Images from the original note were not included. CHIEF COMPLAINT/REASON FOR VISIT Left knee pain REFERRING PROVIDER Sameer Howard P.A.-C. [address] [place] [phone] SUBJECTIVE HISTORY OF PRESENT ILLNESS Laterality: Laterality: Left Knee Melissa Hale is a 60 y.o. female who presents to clinic today for initial evaluation of left knee pain. 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 She was subsequently evaluated by Neurology and Neurosurgery after the nerve block was unsuccessful. Dr. Zhu with neurosurgery evaluated the patient 12/30/2021 and recommended an ultrasound examination of the left thigh to evaluate for any areas of entrapment. I do not see that this study was completed. Dr. Zhu did not recommend a surgical intervention. Today the patient reports pain in the anterior, medial and lateral aspects of the left knee for thepast two years. She has sustained no inciting trauma or injury. Denies any mechanical locking or catching. She does have intermittent swelling exacerbated with prolonged sitting and weight-bearing activity. She has used ice, acetaminophen and ibuprofen with marginal benefit. No previous surgeries or injections to the left knee. It does help when she keeps her leg straight and avoids pivoting maneuvers. Denies history of DVT. No current anticoagulation. No history of diabetes. She does not use nicotine products. She is currently off work for symptoms of vertigo. She presents today for clinical and radiographic evaluation along with a discussion of treatment options. PREVIOUS TREAMENT: Previous knee surgery: No Anti-inflammatory medications: Yes Injections: No Physical Therapy: No Activity Modifications: No Immunosuppressing or DMARDS: No History of DVT/PE: No REVIEW OF SYSTEMS Patient denies constitutional symptoms, including fever, chills, general malaise. PATIENT REPORTED KNEE SCORES: PRO Scores: 12/27/2021 5:12 PM 10/22/2025 11:26 AM 10/22/2025 11:27 AM PROMIS CAT - ORTHO PROMIS CAT: Physical function 38 (moderate dysfunction) 45 (within normal limits) PROMIS CAT: Pain interference 62 (moderate) Global Pain Score 5 MEDICAL HISTORY: Medical History[1] Diabetes Mellitus: No SURGICAL HISTORY Surgical History[2] FAMILY HISTORY Family History[3] SOCIAL HISTORY Social History Occupational History Employer: [employer] Tobacco Use Smoking status: Former Current packs/day: 0.00 Types: Cigarettes Quit date: 2005 Years since quittin.9 Smokeless tobacco: Never Vaping Use Vaping status: never used Substance and Sexual Activity Alcohol use: Yes Alcohol/week: 4.0 standard drinks of alcohol Types: 2 Cans of beer, 2 Standard drinks or equivalent per week Comment: Rare Drug use: Never Sexual activity: Yes Partners: Male control/protection: Post-menopausal Current Outpatient Medications Medication Instructions acetaminophen (TYLENOL) 1,000 mg, oral, Every 6 hours PRN, Not more than 4000 mg in 24 hours. ovmuhss-yggjpkmlnllfv-bouqjmxp (for_EXCEDRIN MIGRAINE) 250-250-65 mg per tablet 2 tablets, Every 6 hours PRN calcium carbonate-vitamin D3 (Calcium 600 with Vitamin D3) 600 mg-10 mcg (400 unit) tablet,chewable2 tablets, Daily cyanocobalamin (VITAMIN B-12) 1,000 mcg, Daily meclizine (ANTIVERT) 25 mg, oral, 3 times daily PRN UNABLE TO FIND Daily ALLERGIES/CONTRAINDICATIONS Allergies Allergen Reactions Albuterol Other (see comments) No reaction noted in Cerner Naproxen Other (see comments) No reaction noted in [facility] Penicillins Other (see comments) No reaction noted in [facility] OBJECTIVE PHYSICAL EXAMINATION Estimated body mass index is 27.13 kg/m?? as calculated from the following: Height as of 10/22/25: 162 cm. Weight as of 10/22/25: 71.2 kg. GENERAL: The patient is alert, oriented, and pleasant to interact with NEURO: Sensation intact to light touch in bilateral lower extremity sural/saphenous/tibial/SPN/DPN dermatomes. SKIN: No previous incisions, significant abrasions or lesions over the area examined LUNGS: Breathing is non-labored VESSELS: Palpable pedal pulses bilaterally MUSCULOSKELETAL: LEFT Knee Examination: GAIT: Antalgic ALIGNMENT: Valgus EFFUSION: None ROM: 0?? to 130?? Tender to palpation at: Medial Joint Line, Lateral Joint Line, Medial Patella HYPERFLEXION: Painful MENISCUS PROVOCATION TEST: Lateral Pain, No Click ANTERIOR DRAWER: 1A (Normal) POSTERIOR DRAWER: 1A (Normal) GUTIERREZ: 1A (Normal) PIVOT SHIFT: Grade 0 VARUS STABILITY: 0 degrees: 1A (Normal) ; 30 degrees: 1A (Normal) VALGUS STABILITY: 0 degrees 1A (Normal): ; 30 degrees:1A (Normal) QUADRICEPS: 5/5, no atrophy BILATERAL HIP EXAMINATION:Stinchfield's test: negative Full passive range of motion bilateral hips:yes Normal CL Knee exam DIAGNOSTICS IMAGING RESULTS: My independent interpretation of the patient's imaging tests are as follows: X-RAY FINDINGS: Plain radiographs of the left knee from 10/09/2025 including AP, PA flexion, lateral and Merchant views demonstrate no acute fracture or dislocation. No ossified loose bodies or bony lesions. Mild Tricompartmental degenerative changes with marginal osteophytes. Patella remain well located in the trochlear groove on Merchant view. MRI FINDINGS: MRI of the left knee from 10/14/2025 were independently reviewed in clinic today. This imaging study shows horizontal degenerative tear of the lateral and medial meniscus. Tricompartmental chondromalacia with grade 3 changes in the patellofemoral and medial compartments. Small joint effusion. ACL, PCL, MCL, LCL intact. ASSESSMENT / PLAN 1. Left knee pain 2. Left knee chondromalacia 3. Left knee degenerative horizontal tear of the lateral meniscus without displacement 4. Left knee degenerative horizontal tear of the medial meniscus without displacement I had a very good discussion with this delightful patient today regarding her left knee. She has clinical and radiographic evidence of tricompartmental chondromalacia and degenerative tears of the medial and lateral meniscus without mechanical symptoms. We had a lengthy discussion regarding the diagnosis, natural history, and treatment options. We discussed both non-operative and operative treatments. Potential non-operative treatment options include, but are not limited to: rest, ice, activitymodification, anti-inflammatory medication, physical therapy, and/or injections. We also discussed the role for arthroscopic surgery including meniscus repair versus partial meniscectomy. There was no current indication for surgical intervention given degenerative horizontal tears of bilateral menisci without mechanical symptoms. She would like to proceed with an intra-articular corticosteroid injection today. We also discussed the importance of low-impact cardiovascular exercise and a home-based exercise regimen to work on quadriceps strengthening and overall knee range of motion. She will follow up on an as-needed basis. The patient was comfortable with this plan, and all questions were answered. It was a pleasure meeting her and her in clinic today. Levi Gonzalez M.D. PATIENT EDUCATION: Ready to learn, no apparent learning barriers were identified; learning preferences include listening. Explained diagnosis and treatment plan; patient expressed understanding of the content. Approximately 45 minutes were spent on the following tasks: Preparing for the patient Reviewing medical records Taking a patient history Performing a physical exam Reviewing treatment options with the patient Explaining the risks, potential benefits, and alternative to surgery Explaining the expected rehabilitation after each treatment option Explaining the potential long-term expectations Evaluating the diagnostic imaging [1] Past Medical History: Diagnosis Date Gastroesophageal Reflux Disease With Esophagitis 11/16/2017 Menopause Migraine Headache 2009 Mixed Irritable Bowel Syndrome 10/13/2017 Nodule Thyroid 2012 [2] Past Surgical History: Procedure Laterality Date APPENDECTOMY 1981 APPENDECTOMY 1982 SECTION 07/04/1989 SECTION 12/31/1990 SECTION 04/30/1997 SECTION Jun COLONOSCOPY 11/06/2017 Repeat in 10 years. [place], [place]. 2day miralax prep, quality good. CYSTOSCOPY 06/29/2011 ESOPHAGOSCOPY / EGD 11/06/2017 [place], [place]. FINE NEEDLE ASPIRATION Right 09/18/2007 Right mid thyroid nodule. Benign. HYSTERECTOMY 04/10/1998 LOOP ELECTRO EXCISION OF CERVIX 03/11/1998 TOTAL HYSTERECTOMY March 1998 [3] Family History Problem Relation Name Age of Onset Hypothyroidism Mother Hypertension Mother Dementia Mother Arthritis Mother Hypothyroidism Sister cervical Cervical cancer Sister cervical Other cancer Sister cervical Pancreatic cancer Grandfather Depression Father Hypertension Father Anxiety disorder Father Pancreatic cancer Father Depression Maternal Grandmother Hypertension Maternal Grandmother Stroke Maternal Grandmother Depression Son Suicide attempts Son ADD Son Tuberculosis Paternal Grandmother Tiffanie Mayen Stroke Paternal Grandmother Tiffanie Mayen from stroke Tuberculosis Father's Brother Hypertension Maternal Grandfather Coronary artery disease Maternal Grandfather Pancreatic cancer Maternal Grandfather Ovarian cancer Sister Cervical cancer Sister Lung cancer Sister Hypothyroidism Sister Depression Father Chandler Mayen Hypertension Father Chandler Mayen Anxiety disorder Father Chandler Mayen Pancreatic cancer Father Chandler Mayen Coronary artery disease Maternal Grandfather Chase 50 - 59 heart attack Other cancer Maternal Grandfather Chase 60 - 69 [place] Cancer NETMAKER APPRENTICE documented in this encounter Plan of Treatment Not on file documented as of this encounter Procedures Procedure Name Priority Date/Time Associated Diagnosis Comments MD ARTHCS ASP/INJ MJR JT WO US Routine 10/24/2025 11:30 AM CABINETMAKER APPRENTICE Pain Knee Left Chondromalacia Left Knee Deranged Medial Meniscus Left Deranged Lateral Meniscus Left documented in this encounter Results * MD ARTHCS ASP/INJ MJR JT WO US (10/24/2025 11:30 AM CABINETMAKER APPRENTICE) Narrative MMODAL - 10/24/2025 11:30 AM CABINETMAKER APPRENTICE Levi Gonzalez M.D. 10/24/2025 12:00 PM Knee site- L knee joint : aspiration and diagnostic-therapeutic injection Performed by: Levi Gonzalez M.D. Authorized by: Levi Gonzalez M.D. PROCEDURE DETAILS Indications: Primary Osteoarthritis of Left Knee Procedure Location knee Knee site: L knee joint Site prep: patient was prepped and draped in usual sterile fashion Patient position: seated Procedural approach: anterolateral Procedure performed: aspiration and diagnostic-therapeutic injection Needle gauge: 22 G, length: 1 1/2 in Procedural Medication The following medications were administered at the target site(s) Local anesthetic: 8 mL lidocaine (PF) 10 mg/mL (1 %) Corticosteroid: 80 mg triamcinolone acetonide 40 mg/mL CONSENT Consent obtained: written (Risks, benefits and alternatives were discussed and a written Informed Consent was obtained. Please see Informed Consent form for further details.) UNIVERSAL PROTOCOL All relevant documentation and testing were reviewed and available. All required blood products, implants, devices and or special equipment were made available as applicable. Pre-procedure verification was conducted and the correct site was marked if required. A fire risk and smoke assessment were done as applicable. The procedural time-out to verify correct patient, correct side/site, and procedure was conducted prior to performing the procedure and confirmed in a procedural pause. PRE-PROCEDURE DETAILS Procedure purpose: therapeutic Indications: Primary Osteoarthritis of Left Knee Appropriate hand hygiene, gown, cap, mask, protective eyewear, sterile gloves, skin preparation, sterile drape, and strict aseptic technique were utilized as applicable for the procedure. Site preparation: chlorhexidine/alcohol SEDATION / ANESTHESIA Anesthesia method: none POST-PROCEDURE DETAILS Procedure completed successfully: yes Complications: no apparent complications Post-procedure instructions: post-procedure activity instructions provided and avoid submersion of procedure site for 48 hours Discharge instructions: dressing care and medications and side effects Levi Gonzalez M.D. PROCEDURE/MINOR SURGICAL O RDERABLES Final Result MMODAL NA documented in this encounter Visit Diagnoses Diagnosis Pain Knee Left- Primary Chondromalacia Left Knee Deranged Medial Meniscus Left Deranged Lateral Meniscus Left documented in this encounter Administered Medications Inactive Administered Medications - up to 3 most recent administrations Medication Order MAR Action Action Date Dose Rate Site lidocaine (PF) 10 mg/mL (1 %) injection 8 mL (Xylocaine) 8 mL, injection, One-Time Injection, Starting on Mon10/24/25 at 1130, For 1 doseIndications:Pain Knee Left,Chondromalacia Left Knee,Deranged Medial Meniscus Left,Deranged Lateral Meniscus Left Given 10/24/2025 11:30 AM CABINETMAKER APPRENTICE 8 mL Lef t Knee triamcinolone acetonide injection 80 mg (Kenalog-40) 80 mg, intra-articular, One-Time Injection, Starting on Mon10/24/25 at 1130, For 1 doseIndications:Pain Knee Left,Chondromalacia Left Knee,Deranged Medial Meniscus Left,Deranged Lateral Meniscus Left Given 10/24/2025 11:30 AM CABINETMAKER APPRENTICE 80 mg Lef t Knee documented in this encounter Care Teams Control Clerk Repairs Relationship Specialty Start Date End Date Sameer Howard P.A.-C. [address] [place] [phone] PCP - General Family Medicine 09/16/19 documented as of this encounter
--- OUTSIDE RECORDS SUMMARY | 2025-10-28 09:56 | XMS_ITS | Encounter Summary ---
Author Organization [facility] Address [address] [place] [address] Care Team Providers Care Tentering Machine Off Bearer Name Role Phone Sameer Howard P.A.-C. Primary Care Provider Reason for Referral * Outpatient (Routine) - Closed Specialty Diagnoses / Procedures Referred By Omar bassett Referred To Contact Diagnoses Screening Mammogram Breast Cancer Procedures BI Breast Screening Bilateral with Tomosynthesis Sameer Howard P.A.-C. [address] [place] [address] Phone: tel: fax: [facility] Region Referral ID Status Reason Start Date Expiration Date Visits Re quested Visits Authorized [id number] Closed 05/27/2025 08/27/2026 1 1 KILN BURNER Reason for Visit * Outpatient (Routine) - Closed Specialty Diagnoses / Procedures Referred By Omar bassett Referred To Contact Diagnoses Screening Mammogram Breast Cancer Procedures BI Breast Screening Bilateral with Tomosynthesis Sameer Howard P.AJuhi-CJuhi [address] [place] [address] Phone: tel: fax: [facility] Region Referral ID Status Reason Start Date Expiration Date Visits Re quested Visits Authorized [id number] Closed 05/27/2025 08/27/2026 1 1 Encounter Details Date Type Department Care Team (Latest Contact Info) Description 10/28/2025 9:56 AM DRY KILN BURNER - 10/28/2025 11:59 PM DRY KILN BURNER Hospital Encounter Department of Radiology in [place], [place] [address] [place] [phone] Sameer Howard P.A.-C. [address] [place] [phone] Screening Mammogram Breast Cancer Discharge Disposition: Home or Self Care Social [...] things needed for daily living? Yes 10/13/2025 [facility] Utilities Answer Date Recorded In the past 12 months has th e electric, gas, oil, or water company threatened to shut off services in your home? No 10/13/2025 Housing Stability Answer Date Recorded What is your living situation today? I have a [facility] place to live 10/13/2025 Education Answer Date Recorded What is the highest level of school you have completed or the highest degree you have received? Associate degree: occupational, technical, or vocational program 09/17/2019 Comments No Sex and Gender Information Value Date Recorded Sex Assigned at Female 11/01/2021 9:22 PM DRY KILN BURNER Legal Sex Female 2:38 AM DRY KILN BURNER Gender Identity Female 03/29/2019 3:05 PM CDT [...] Procedure Name Priority Date/Time Associated Diagnosis Comments BI BREAST SCREENING BILATERAL WITH TOMOSYNTHESIS RAD - Routine (most inpatients and all outpatients) 10/28/2025 10:27 AM DRY KILN BURNER Screening Mammogram Breast Cancer documented in this encounter Results * BI Breast Screening Bilateral with Tomosynthesis (10/28/2025 10:27 AM DRY KILN BURNER) Anatomical Region Laterality Modality Breast, Breast Imaging RST L OS, Breast Imaging ARZ LOS, Breast Imaging FLA LOS Bilateral Mammography Impressions 10/28/2025 10:59 AM DRY KILN BURNER Negative. RECOMMENDATION: Annual Screening Mammogram ASSESSMENT: BI-RADS: 1: Negative. Narrative 10/28/2025 10:59 AM DRY KILN BURNER EXAM: BI BREAST SCREENING BILATERAL WITH TOMOSYNTHESIS Current study was evaluated with a Computer Aided Detection (CAD) system. INDICATION: Screening mammogram. COMPARISON: Prior exam(s) were available and reviewed for comparison. DENSITY: c. The breast(s) are heterogeneously dense, which may obscure small masses. FINDINGS: No mammographic findings of malignancy. Procedure Note Levi Goldberg M.D. - 10/28/2025 EXAM: BI BREAST SCREENING BILATERAL WITH TOMOSYNTHESIS Current study was evaluated with a Computer Aided Detection (CAD) system. INDICATION: Screening mammogram. COMPARISON: Prior exam(s) were available and reviewed for comparison. DENSITY: c. The breast(s) are heterogeneously dense, which may obscuresmall masses. FINDINGS: No mammographic findings of malignancy. IMPRESSION: Negative. RECOMMENDATION: Annual Screening Mammogram ASSESSMENT: BI-RADS: 1: Negative. Sameer Howard P.A.-C. IMG BI PROCEDURES Mini l Result documented in this encounter Visit Diagnoses Diagnosis Screening Mammogram Breast Cancer documented in this encounter Care Teams Tentering Machine Off Bearer Relationship Specialty Start Date End Date Sameer Howard P.A.-C. [address] [place] [phone] PCP - General Family Medicine 09/16/19 documented as of this encounter
[2025-10-29] VITALS (9 sets, daily range): BP systolic 119–160; BP diastolic 55–81; PULSE 56–70; RESP 18; TEMP 37.1; O2SAT 100
--- OUTSIDE RECORDS SUMMARY | 2025-10-29 10:43 | XMS_ITS | Encounter Summary ---
Author Organization [facility] Address [address] [place] [address] Care Team Providers Care Service Inspector Name Role Phone Sameer Howard P.A.-C. Primary Care Provider Reason for Visit * Reason Onset Date Comments Dizziness 10/21/2025 Encounter Details Date Type Department Care Team (Late st Contact Info) Description 10/21/2025 Nurse Triage Department of Family Medicine, [facility], in [place], [place] [address] [place] [id number] Mary Aguirre, RJuhiNJuhi [address] [place] [phone] Dizziness Social History Tobacco Use Types Packs/Day Years [...] things needed for daily living? Yes 10/13/2025 [facility] Utilities Answer Date Recorded In the past [address] [facility] [employer], gas, oil, or water [employer] threatened to shut off services in your home? No 10/13/2025 Housing Stability Answer Date Recorded What is your living situation today? I have a [facility] place to live 10/13/2025 Education Answer Date Recorded What is the highest level of school you have completed or the highest degree you have received? Associate degree: occupational, technical, or vocational program 09/17/2019 Comments No Sex and Gender Information Value Date Recorded Sex Assigned at Female 11/01/2021 9:22 PM FOOT TENDER Legal Sex Female 2:38 AM FOOT TENDER Gender Identity Female 03/29/2019 3:05 PM CDT Sexual Orientation Straight 03/29/2019 3: 05 PM CDT Occupation Industry Job Start Date Job End Date Not on file Not on file Not on file Not on file documented as of this encounter Miscellaneous Notes * Telephone Encounter - Mary Aguirre R.N. - 10/21/2025 9:21 AM CST Chief Complaint / Reason for Call Patient is a 60 y.o. female calling regarding Dizziness. Assessment Concern: Almost fainted twice while showering this morning. Still feeling lightheaded/dizzy and offbalance when stands up. Patient reports falling in shower due near fainting spell while in shower. Denies any injury or hitting head. She had a second near fainting episode in the shower where she lowered herself to the ground. Now feels lightheaded every time she gets up. Can feel a headache starting. History of migraines, but isn't feeling the typical aura. Reports heart gets a little crazy once in awhile and chest has ached a little bit today. Reports a history of aching in chest that she has discussed with her provider. Achiness is on left side of chest and only lasts up to a minute. In the past heart felt like it would race. Present for: This morning. Home cares tried: Drinking extra, rest Calling to request: Advice, already scheduled appt for tomorrow The recommended disposition is See a health care provider within 4 hours, See a health care provider within 24 hours. Patient was warm transferred to [facility], Patient Appointment Ophthalmic Tech at the clinic for further assistance. and If clinic appointment is not available in the next 4 hours, caller is advisedto be seen in emergency department Reason for Disposition [1] Chest pain lasts < 5 minutes AND [2] NO chest pain or cardiac symptoms (e.g., breathing difficulty, sweating) now (Exception: Chest pains that last only a few seconds.) [1] Dizziness caused by heat exposure, sudden standing, or poor fluid intake AND [2] no improvementafter 2 hours of rest and fluids Protocols used: Dizziness - [id number], Chest Nhdu-Gjtne-WF Care Advice Patient/Caregiver understands and will follow care advice?: Yes, able to teach back Dizziness - Rwgshjahnajiqan-Cpqbz-AX Nurse Mary Case Oct 21, 2025 09:32 AM Care Advice SEE HCP WITHIN 4 HOURS: * You need to be seen within the next 3 or 4 hours. LIE DOWN AND REST: * Lie down with feet elevated for 1 hour. * This will improve blood flow through the body and to the brain. CALL BACK IF: * You pass out (faint) or are too weak to stand * You become worse TENDER documented in this encounter Plan of Treatment Not on file documented as of this encounter Visit Diagnoses Not on filedocumented in this encounter Care Teams Service Inspector Relationship Specialty Start Date End Date Sameer Howard P.A.-C. [address] [place] [phone] PCP - General Family Medicine 09/16/19 documented as of this encounter
--- OUTSIDE RECORDS SUMMARY | 2025-10-29 10:43 | XMS_ITS | Encounter Summary ---
Author Organization [facility] Address [address] [place] [address] Care Team Providers Care Sales Correspondence Clerk Name Role Phone Sameer Howard P.A.-C. Primary Care Provider Encounter Details Date Type Department Care Team (Late st Contact Info) Description 10/24/2025 Results Follow-Up Department of Family Medicine, [facility], in [place], [place] [address] [place] [phone] Sameer Howard P.A.-C. [address] [place] [phone] S-TSH (Thyroid-Stimulating Hormone - Sensitive), CBC with Differential, Blood, Basic Metabolic Panel Social History Tobacco Use Types Packs/Day Years [...] things needed for daily living? Yes 10/13/2025 [facility] Utilities Answer Date Recorded In the past 12 months has [employer], gas, oil, or water company threatened to shut off services in your home? No 10/13/2025 Housing Stability Answer Date Recorded What is your living situation today? I have a [employer] place to live 10/13/2025 Education Answer Date Recorded What is the highest level of school you have completed or the highest degree you have received? Associate degree: occupational, technical, or vocational program 09/17/2019 Comments No Sex and Gender Information Value Date Recorded Sex Assigned at Female 11/01/2021 9:22 PM SUPERVISOR [employer]LLING [employer]OOTING Legal Sex Female 2:38 AM SUPERVISOR [employer]ING [employer]ING Gender Identity Female 03/29/2019 3:05 PM CDT Sexual Orientation Straight 03/29/2019 3: 05 PM CDT Occupation Industry Job Start Date Job End Date Not on file Not on file Not on file Not on file documented as of this encounter Plan of Treatment Not on file documented as of this encounter Visit Diagnoses Not on filedocumented in this encounter Care Teams Sales Correspondence Clerk Relationship Specialty Start Date End Date Sameer Howard P.A.-C. [address] [place], [place] [address] [phone] PCP - General Family Medicine 09/16/19 documented as of this encounter
--- OUTSIDE RECORDS SUMMARY | 2025-10-29 10:43 | XMS_ITS | Encounter Summary ---
Author Organization [facility] Address [address] [place] [address] Care Team Providers Care Biodiesel Product Development Manager Name Role Phone Sameer Howard P.A.-C. Primary Care Provider Encounter Details Date Type Department Care Team (Late st Contact Info) Description 10/09/2025 Results Follow-Up Department of Family Medicine, [facility], in [place], [place] [address] [place] [phone] Sameer Howard P.A.-CJuhi [address] [place] [phone] DX Knee Left with Flexion and Patella 4 Views Social History Tobacco Use Types Packs/Day Years [...] things needed for daily living? Yes 10/13/2025 [facility] Utilities Answer Date Recorded In the past 12 months has [employer], gas, oil, or water [employer] threatened to shut off services in your home? No 10/13/2025 Housing Stability Answer Date Recorded What is your living situation today? I have a [facility] place to live 10/13/2025 Education Answer Date Recorded What is the highest level of school you have completed or the highest degree you have received? Associate degree: occupational, technical, or vocational program 09/17/2019 Comments No Sex and Gender Information Value Date Recorded Sex Assigned at Female 11/01/2021 9:22 PM UNDERWRITING MANAGER Legal Sex Female 2:38 AM UNDERWRITING MANAGER Gender Identity Female 03/29/2019 3:05 PM CDT Sexual Orientation Straight 03/29/2019 3: 05 PM CDT Occupation Industry Job Start Date Job End Date Not on file Not on file Not on file Not on file documented as of this encounter Plan of Treatment Not on file documented as of this encounter Visit Diagnoses Not on filedocumented in this encounter Care Teams Biodiesel Product Development Manager Relationship Specialty Start Date End Date Sameer Howard P.A.-C. REHAN: [phone] [address] [place] [address] [place] [phone] PCP - General Family Medicine 09/16/19 documented as of this encounter
--- OUTSIDE RECORDS SUMMARY | 2025-10-29 10:44 | XMS_ITS | Clinical Summary ---
Author Organization [facility] Address [address] [place] [address] Care Team Providers Care Policeman Name Role Phone Sameer Howard P.A.-C. Primary Care Provider Source Comments Patient records contain information from all sites at [facility]. For routine questions regarding patient records, call [phone] during business hours, M-F 8:00 AM - 5:00 PM Central Time. Record requests for emergency care only can be directed to [phone] at any time.[facility] Allergies Active Allergy Reactions Criticality Noted Date Comments Albuterol Other (see comments) 07/06/2010 No reaction noted in [facility] Naproxen Other (see comments) 07/06/2010 No reaction noted in [facility] Penicillins Other (see comments) 07/06/2010 No reaction noted in [facility] Medications * This document contains information received from the source organization and may not represent a complete record from that organization. aspirin-acetam inophen-caffei ne (for_EXCEDRIN MIGRAINE) 250-250-65 mg per tablet Take 2 tablets by mouth every 6 (six) hours as needed. 09/09/20 14 Active acetaminophen (for_TYLENOL) 500 mg tablet Take 2 tablets (1,000 mg total) by mouth every 6 (six) hours as needed for pain. Not more than 4000 mg in 24 hours. 0 02/17/20 18 Active UNABLE TO FIND Take by mouth daily. Med Name: [employer]- Probiotic Supplement 215mg daily. Active calcium carbonate-any min D3 (Calcium 600 with Vitamin D3) 600 mg-10 mcg (400 unit) tablet,chewabl e Chew 2 tablets daily. Active cyanocobalamin (vitamin B-12) 1,000 mcg tablet Take 1,000 mcg by mouth daily. Active meclizine (Antivert) 25 mg tablet Take 1 tablet (25 mg total) by mouth 3 (three) times a day as needed for dizziness. 30 tablet 10/22/20 25 Active omeprazole (PriLOSEC) [address] capsule Take 1 capsule (20 mg total) by mouth daily. 90 capsule 3 08/23/20 23 025 Discontinued Fiber, calcium polycarbophil, 625 mg tablet Take 2 tablets by mouth daily. 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 Encounters Date Type Department Care Team Description 10/28/2025 9:56 AM GAS MAIN FITTER - 10/28/2025 11:59 PM GAS MAIN FITTER Hospital Encounter Department of Radiology in [place], [place] [address] [place] [address] Sameer Howard, Shawn. Screening Mammogram Breast Cancer Discharge Disposition: Home or Self Care 10/24/2025 11:30 AM GAS MAIN FITTER Comprehensive Visit Department of Orthopedic Surgery in [place], [place] [address] [place] [address] Levi Gonzalez M.D. Pain Knee Left (Primary Dx); Chondromalacia Left Knee; Deranged Medial Meniscus Left; Deranged Lateral Meniscus Left 10/24/2025 Results Follow-Up Department of Family Medicine, [facility], in [place], [place] [address] [place] [address] Sameer Howard P.A.-C. S-TSH (Thyroid-Stimulatin g Hormone - Sensitive), CBC with Differential, Blood, Basic Metabolic Panel 10/22/2025 3:54 PM GAS MAIN FITTER - 10/22/2025 11:59 PM GAS MAIN FITTER Hospital Encounter Department of Laboratory Medicine in [place], [place] [address] [place] [address] Sameer Howard P.A.-C. Vertigo Discharge Disposition: Home or Self Care 10/22/2025 3:30 PM GAS MAIN FITTER Office Visit Department of Family [facility], [facility], in [address] [address] Sameer Howard P.A.-C. Vertigo (Primary Dx); Vertigo Benign Paroxysmal Positional Left 10/21/2025 Nurse Triage Department of [facility], [facility], in [address] [address] Mary Aguirre R.N. Dizziness 10/14/2025 12:55 PM GAS MAIN FITTER - 10/14/2025 11:59 PM GAS MAIN FITTER Hospital Encounter Department of Radiology in [place], [place] [address] [place] [address] Sameer Howard P.A.-C. Pain Knee Left Discharge Disposition: Home or Self Care 10/09/2025 12:18 PM GAS MAIN FITTER - 10/09/2025 11:59 PM GAS MAIN FITTER Hospital Encounter Department of Radiology in [place], [place] [address] [place] [phone] Sameer Howard P.A.-C. Pain Knee Left Discharge Disposition: Home or Self Care 10/09/2025 11:30 AM GAS MAIN FITTER Office Visit Department of [facility], [facility], in [address] [phone] RoethSameer sin P.A.-C. Nodule Thyroid (Primary Dx); General Medical Examination Adult; Fasciitis Plantar; Pain Knee Left; Hyperlipidemia 10/09/2025 Results Follow-Up Department of Family Medicine, [facility], in [place] [address] [facility] [address] Sameer Howard P.A.-C. DX Knee Left with Flexion and Patella 4 Views from Last 3 Months Immunizations Immunization Administration Dates Next Due DT, Pediatric 05/11/2006 HZV (ZOSTAVAX) 08/23/2023(Deferred: Patient decision - Patient will chekc with Nati.) Influenza, Injectable, Mdck, Preservative Free, Quadrivalent 09/24/2024 Influenza, Injectable, Mdck, Quadrivalent 09/07/2022 Influenza, Injectable, Quadrivalent 09/09/2020 Influenza, Seasonal, Injectable 08/11/2017 Influenza, Unspecified 08/11/2017,2015,10/04/2010,2009,09/20/2009,05/11/2006 RZV (SHINGRIX) 11/12/2021 Tdap 09/29/2016,05/11/2006 influenza trivalent vaccine (6 months and older)(PF) 08/03/2016,09/20/2009 influenza vaccine quad (FLUZONE/FLUARIX) (6 months and older)(PF) 11/12/2021 Family History Medical History Relation Name Comments Anxiety disorder Father 1 Depression Father 1 Hypertension Father 1 Pancreatic cancer Father 1 Anxiety disorder Father 2 Chandler Mayen Depression Father 2 Chandlersamm Mayen Hypertension Father 2 Chandlersamm Mayen Pancreatic cancer Father 2 Chandlersamm Mayen Tuberculosis Father's Brother Pancreatic cancer Grandfather Coronary artery disease Maternal Grandfather 1 Hypertension Maternal Grandfather 1 Pancreatic cancer Maternal Grandfather 1 Coronary artery disease Maternal Grandfather 2 Chase heart attack Other cancer Maternal Grandfather 2 Chase Stoma ch Cancer Depression Maternal Grandmother Hypertension Maternal Grandmother Stroke Maternal Grandmother Arthritis Mother Dementia Mother Hypertension Mother Hypothyroidism Mother Stroke Paternal Grandmother Tiffanie Mayen from stroke Tuberculosis Paternal Grandmother Tiffanie Mayen Cervical cancer Sister 1 cervical Hypothyroidism Sister 1 cervical Other cancer Sister 1 cervical Cervical cancer Sister 2 Hypothyroidism Sister 2 Lung cancer Sister 2 Ovarian cancer Sister 2 ADD Son Depression Son Suicide attempts Son Relation Name Status Comments Father 1 Alive Father 2 Chandler Mayne Alive Father's Brother Alive Grandfather Maternal Grandfather 1 Alive Maternal Grandfather 2 Chase Alive Maternal Grandmother Alive Mother Alive Paternal Grandmother Tiffanie Mayen Alive Sister 1 cervical Sister 2 Alive Son Alive Social History Tobacco Use Types Packs/Day Years [...] things needed for daily living? Yes 10/13/2025 [facility] Utilities Answer Date Recorded In the past 12 months has e electric, gas, oil, or water company threatened to shut off services in your home? No 10/13/2025 Housing Stability Answer Date Recorded What is your living situation today? I have a [facility] place to live 10/13/2025 Education Answer Date Recorded What is the highest level of school you have completed or the highest degree you have received? Associate degree: occupational, technical, or vocational program 09/17/2019 Comments No Sex and Gender Information Value Date Recorded Sex Assigned at Female 11/01/2021 9:22 PM GAS MAIN FITTER Legal Sex Female 2:38 AM GAS MAIN FITTER Gender Identity Female 03/29/2019 3:05 PM CDT Sexual Orientation Straight 03/29/2019 3: 05 PM CDT Occupation Industry Job Start Date Job End Date Not on file Not on file Not on file Not on file Last Filed Vital Signs Vital Sign Reading Time Taken Comments Blood Pressure 108/71 10/22/2025 3:16 PM GAS MAIN FITTER Pulse 63 10/22/2025 3:16 PM GAS MAIN FITTER Temperature 36.6 C (97.9 F) 10/22/2025 3:16 PM GAS MAIN FITTER Respiratory Rate 20 10/22/2025 3:16 PM GAS MAIN FITTER Oxygen Saturation 100% 10/26/2020 5:42 PM GAS MAIN FITTER Inhaled Oxygen Concentration - - Weight 71.8 kg (158 lb 4.6 oz) 10/24/2025 11:21 AM GAS MAIN FITTER Height 158.3 cm (5' 2.32) 10/24/2025 11:[address] Body Mass Index 28.65 10/24/2025 11:21 AM GAS MAIN FITTER Plan of Treatment Health Maintenance Due Date Last Done Comments CT Colonography 1965 Cologuard 1965 FIT 1965 HIV Screening 1965 Hepatitis C Screening 1965 Pneumococcal vaccine (50+ years) (1 of 1 - PCV) 2013 Zoster Vaccines (2 of 2) 01/07/2022 11/12/2021 Lipid (Cholesterol) Screening 08/23/2024 08/23/2023 COVID-19 Vaccine ( - season) 2025 10/19/2021, 03/26/2021, 02/11/2021 Influenza Vaccine (#1) 2025 , 09/07/2022, 11/12/2021, Additional history exists DTaP,Tdap,and Td Vaccines (4 - Td or Tdap) 09/29/2026 09/29/2016, 05/11/2006, 05/11/2006 Mammogram 10/28/2026 10/28/2025, 09/28, 10/12/2021, Additional history exists Colonoscopy 11/06/2027 11/06/2017, 10/27 (Performed elsewhere) Colorectal Cancer Screening 11/06/2027 Fasting Glucose for Diabetes Screening 10/22/2028 10/22/2025, 10/16/2023, 08/23/2023, Additional history exists Depression Screening (Annual PHQ-2) Completed 10/09/2025 IPV Vaccines Aged Out No longer eligi ble based on patient's age to complete this topic Procedures Procedure Name Priority Date/Time Associated Diagnosis Comments BI BREAST SCREENING BILATERAL WITH TOMOSYNTHESIS RAD - Routine (most inpatients and all outpatients) 10/28/2025 10:27 AM GAS MAIN FITTER Screening Mammogram Breast Cancer RI ARTHCS ASP/INJ MJR JT WO US Routine 10/24/2025 11:30 AM GAS MAIN FITTER Pain Knee Left Chondromalacia Left Knee Deranged Medial Meniscus Left Deranged Lateral Meniscus Left BASIC METABOLIC PANEL, S/P Routine 10/22/2025 4:01 PM GAS MAIN FITTER Vertigo CBC WITH DIFFERENTIAL, B Routine 10/22/2025 4:01 PM GAS MAIN FITTER Vertigo THYROID-STIMULATING HORMONE-SENSITIVE (S-TSH) Routine 10/22/2025 4:01 PM GAS MAIN FITTER Vertigo MR KNEE LEFT WITHOUT IV CONTRAST RAD - Routine (most inpatients and all outpatients) 10/14/2025 2:04 PM GAS MAIN FITTER Pain Knee Left DX KNEE LEFT FLEXION AND PATELLA 4 VIEWS RAD - Routine (most inpatients and all outpatients) 10/09/2025 12:46 PM GAS MAIN FITTER Pain Knee Left LIPID PANEL, S Routine 08/23/2023 4:03 PM CDT Screening Examination For Thyroid Disorder Screening Examination Diabetes Mellitus Encounter For Screening For Cardiovascular Disorders Iron Deficiency Anemia Screening Exam Screening Mammogram Breast Cancer from Last 3 Months or Most Recently Relevant to Health Maintenance Results * BI Breast Screening Bilateral with Tomosynthesis (10/28/2025 10:27 AM GAS MAIN FITTER) Anatomical Region Laterality Modality Breast, Breast Imaging RST L OS, Breast Imaging ARZ LOS, Breast Imaging FLA LOS Bilateral Mammography Impressions 10/28/2025 10:59 AM GAS MAIN FITTER Negative. RECOMMENDATION: Annual Screening Mammogram ASSESSMENT: BI-RADS: 1: Negative. Narrative 10/28/2025 10:59 AM GAS MAIN FITTER EXAM: BI BREAST SCREENING BILATERAL WITH TOMOSYNTHESIS [...] Annual Screening Mammogram ASSESSMENT: BI-RADS: 1: Negative. us Sameer Howard P.A.-C. IMG BI PROCEDURES Mini l Result * RI ARTHCS ASP/INJ MJR JT WO US (10/24/2025 11:30 AM GAS MAIN FITTER) Narrative MMODAL - 10/24/2025 11:30 AM GAS MAIN FITTER Levi Gonzalez M.D. 10/24/2025 12:00 PM Knee [...] SURGICAL O RDERABLES Final Result MMODAL NA * CBC with Differential, Blood (10/22/2025 4:01 PM GAS MAIN FITTER) Hemoglobin 14.0 11.6 - 15.0 g/dL 10/22/2025 5:35 PM GAS MAIN FITTER OWAT Hematocrit 42.8 35.5 - 44.9 % 10/22/2025 5:35 PM GAS MAIN FITTER OWAT Erythrocytes 4.71 3.92 - 5.13 x10(12)/L 10/22/2025 5:35 PM GAS MAIN FITTER OWAT MCV 90.9 78.2 - 97.9 fL 10/22/2025 5:35 PM GAS MAIN FITTER OWAT RBC Distrib Width 13.1 12.2 - 16.1 % 10/22/2025 5:35 PM GAS MAIN FITTER OWAT Platelet Count 223 157 - 371 x10(9)/L 10/22/2025 5:35 PM GAS MAIN FITTER OWAT Leukocytes 6.4 3.4 - 9.6 x10(9)/L 10/22/2025 5:35 PM GAS MAIN FITTER OWAT Neutrophils 3.16 1.56 - 6.45 x10(9)/L 10/22/2025 5:35 PM GAS MAIN FITTER OWAT Lymphocytes 2.72 0.95 - 3.07 x10(9)/L 10/22/2025 5:35 PM GAS MAIN FITTER OWAT Monocytes 0.39 0.26 - 0.81 x10(9)/L 10/22/2025 5:35 PM GAS MAIN FITTER OWAT Eosinophils 0.12 0.03 - 0.48 x10(9)/L 10/22/2025 5:35 PM GAS MAIN FITTER OWAT Basophils 0.05 0.01 - 0.08 x10(9)/L 10/22/2025 5:35 PM GAS MAIN FITTER OWAT Blood (Blood, Venous) 10/22/2025 4:01 PM GAS MAIN FITTER 10/22/2025 5:31 PM GAS MAIN FITTER us Sameer Howard P.A.-C. LAB BLOOD ADD-ON Final Result [facility] [address] [place] [address], [facility] OWAT [facility] in [place] [address] [place] [id number] * S-TSH (Thyroid-Stimulating Hormone - Sensitive) (10/22/2025 4:01 PM GAS MAIN FITTER) TSH, Sensitive 1.2 0.3 - 4.2 mIU/L 10/22/2025 6:07 PM GAS MAIN FITTER OWAT Blood (Blood, Venous) 10/22/2025 4:01 PM GAS MAIN FITTER 10/22/2025 5:31 PM GAS MAIN FITTER us Sameer Howard P.A.-C. LAB BLOOD ADD-ON Final Result [facility] [address] [place] [address], [facility] OWAT [facility] in [place] [address] [place] [address] * Basic Metabolic Panel (10/22/2025 4:01 PM GAS MAIN FITTER) Potassium, P 5.0 3.6 - 5.2 mmol/L 10/22/2025 5:58 PM GAS MAIN FITTER OWAT Sodium, P 140 135 - 145 mmol/L 10/22/2025 5:58 PM GAS MAIN FITTER OWAT Chloride, P 107 98 - 107 mmol/L 10/22/2025 5:58 PM GAS MAIN FITTER OWAT Bicarbonate, P 24 22 - 29 mmol/L 10/22/2025 5:58 PM GAS MAIN FITTER OWAT Anion Gap, P 9 7 - 15 10/22/2025 5:58 PM GAS MAIN FITTER OWAT BUN (Blood Urea Nitrogen), P 18 6 - 21 mg/dL 10/22/2025 5:58 PM GAS MAIN FITTER OWAT Creatinine 0.73 0.59 - 1.04 mg/dL 10/22/2025 5:58 PM GAS MAIN FITTER OWAT Estimated GFR (eGFR) >90 >=60 mL/min/BSA 10/22/2025 5:58 PM GAS MAIN FITTER OWAT Comment: Estimated GFR calculated using the 2020 CKD_EPI creatinine equation. Calcium, Total, P 9.8 8.8 - 10.2 mg/dL 10/22/2025 5:58 PM GAS MAIN FITTER OWAT Glucose, P 97 70 - 140 mg/dL 10/22/2025 5:58 PM GAS MAIN FITTER OWAT Blood (Blood, Venous) 10/22/2025 4:01 PM GAS MAIN FITTER 10/22/2025 5:31 PM GAS MAIN FITTER us Sameer Howard P.A.-C. LAB BLOOD ADD-ON Final Result [facility] [address] [place] [address], [place] OWAT [facility] in [place] [address] [place] [address] * MR Knee Left without IV Contrast (10/14/2025 2:04 PM GAS MAIN FITTER) Anatomical Region Laterality Modality Lower Extremity, Knee, Muscu loskeletal RST LOS, Musculoskeletal ARZ LOS, Muskuloskeletal FLA LOS Left Magne tic Resonance Impressions 10/14/2025 2:42 PM GAS MAIN FITTER 1. Horizontal tear lateral meniscus communicating with the femoral articular surface. 2. Intrasubstance horizontal tear medial meniscus without appreciable communication to an articular surface. 3. 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 4. Small knee joint effusion. Narrative 10/14/2025 2:42 PM GAS MAIN FITTER EXAM: MR KNEE LEFT WITHOUT IV CONTRAST [...] and Patella 4 Views (10/09/2025 12:46 PM GAS MAIN FITTER) Anatomical Region Laterality Modality Lower Extremity, Knee, Muscu loskeletal RST LOS, Musculoskeletal ARZ LOS, Muskuloskeletal FLA LOS Left Digit al Radiography Impressions 10/09/2025 1:29 PM GAS MAIN FITTER No appreciable fracture. Moderate knee joint effusion. 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 Narrative 10/09/2025 1:29 PM GAS MAIN FITTER EXAM: DX KNEE LEFT FLEXION AND PATELLA [...] Mild to moderateosteoarthritic changes of the knee. aSmeer Howard P.A.-C. IMG DIAGNOSTIC IMAGING PROCEDURES Final Result * (ABNORMAL) Lipid Panel (08/23/2023 4:03 PM CDT) Triglycerides 141 mg/dL 08/23/2023 6:50 PM CDT OWAT Comment: ----REFERENCE VALUE---- Normal: <150 mg/dL Borderline High: 150-199 mg/dL High: 200-499 mg/dL Very High: > or =500 mg/dL Cholesterol, Total 202(H) mg/dL 2022 6:50 PM CDT OWAT Comment: ----REFERENCE VALUE---- Desirable: < 200 mg/dL Borderline High: 200 - 239 mg/dL High: > or = 240 mg/dL Cholesterol, LDL, Calculated 112 mg/dL 08/23/2023 6:50 PM CDT OWAT Comment: ----REFERENCE VALUE---- Desirable: <100 mg/dL Above Desirable: 100-129 mg/dL Borderline High: 130-159 mg/dL High: 160-189 mg/dL Very High: >=190 mg/dL ----ADDITIONAL INFORMATION---- LDL cholesterol calculated using the Phillips/NIH equation. Cholesterol, HDL 65 >=50 mg/dL 08/23/20 6:50 PM CDT OWAT Cholesterol, Non-HDL, Calculated 137 mg/dL 08/23/2023 6:50 PM CDT OWAT Comment: ----REFERENCE VALUE---- Desirable: <130 mg/dL Above Desirable: 130-159 mg/dL Borderline High: 160-189 mg/dL High: 190-219 mg/dL Very High: > or =220 mg/dL Fasting (8 HR or more) No 08/23/2023 6:28 PM CDT OWAT Blood (Blood, Venous) 08/23/2023 4:03 PM CDT 08/23/2023 6:28 PM CDT Sameer Howard P.A.-C. LAB BLOOD ADD-ON Final Result [facility] [address] [facility] [place] [address], [place] OWAT [facility] in [place] [address] [place] [address] from Last 3 Months or Most Recently Relevant to Health Maintenance Insurance [employer] [facility] Care Teams Policeman Relationship Specialty Start Date End Date Sameer Howard P.A.-C. [address] [place] [address] [place] [address] PCP - General Family Medicine 09/16/19
--- OUTSIDE RECORDS SUMMARY | 2025-10-29 10:44 | XMS_ITS | Clinical Summary ---
Author Organization [facility] Address [address] [place] [id number] Care Team Providers Care Building Construction Professor Name Role Phone Tato Guido MD Primary Care Prov ider Allergies Active Allergy Reactions Criticality Noted Date Comments Penicillins *Unknown 09/01/2014 Medications HYDROcodone-ac etaminophen (NORCO) 5-325 mg per tabletIndicati ons:Contusion of left lower extremity, initial encounter Take 1 Tablet by mouth every 6 hours if needed for Pain. Max acetaminophen dose: 4000 mg in 24 hrs. 6 Tablet Active Active Problems No known active problems Social History Tobacco Use Types Packs/Day Years Used Date Smoking Tobacco: Never Smokeless Tobacco: Never Tobacco Cessation:Counseling Given: Yes Comments No Sex and Gender Information Value Date Recorded Sex Assigned at Not on file Legal Sex Female 2:57 PM COTTON STOMPER Gender Identity Not on file Sexual Orientation Not on file Obstetrics History Last Filed Vital Signs Vital Sign Reading Time Taken Comments Blood Pressure 116/61 08/26/2021 6:35 AM CDT Pulse 71 08/26/2021 6:35 AM CDT Temperature 36.7 C (98.1 F) 08/26/2021 6:35 AM CDT Respiratory Rate 16 08/26/2021 6:35 AM CDT Oxygen Saturation 99% 08/26/2021 6:35 AM CDT Inhaled Oxygen Concentration - - Weight 68.5 kg (151 lb) 08/26/2021 6:35 AM CDT Height - - Body Mass Index - - Plan of Treatment Health Maintenance Due Date Last Done Comments Tetanus booster 1974 Depression screening for age 12+ 1975 HIV for age 15-65 1978 BMI (ht and wt on same day) for age 18+ 1981 Hepatitis C screening for ag e 18-79 1981 Pap test for age 21-65 1984 Lipids for age 45-75 2008 Mammogram for age 45-75 2008 Pneumococcal series for age 50+ (1 of 1 - PCV) 2013 Zoster (shingles) series for age 50+ (1 of 2) 2013 COVID-19 vaccine series (3 - season) 2025 03/26/2021, 02/11/2021 Influenza Vaccine (#1) 2025 Colonoscopy through age 75 11/06/2027 11/06/2017 RSV vaccine for adults or (1 - 1-dose 75+ series) 2038 Hepatitis B series for 19+ Aged Out N o longer eligible based on patient's age to complete this topic Procedures Procedure Name Priority Date/Time Associated Diagnosis Comments COLONOSCOPY 11/06/2017 10:02 AM COTTON STOMPER from Last 3 Months or Most Recently Relevant to Health Maintenance Results * COLONOSCOPY (11/06/2017 10:02 AM COTTON STOMPER) 11/06/2017 10:0 2 AM COTTON STOMPER Narrative Transcriptions KingJose Elias mosley 11/06/2017 10:43 AM CST Patient Name: Melissa Hale Procedure Date: 11/06/2017 Gender: Female Date of : 1965 Admit Type: Ambulatory Procedure: Colonoscopy Proceduralist: Jose Elias Malik [facility] Indications/Pre-Op Diagnosis: Screening for colorectal malignant neoplasm, This is the patient's first colonoscopy Medications: The level of sedation administered was moderate, Midazolam 6 mg IV, Fentanyl 150 micrograms IV Procedure Description: The patient had risks, benefits and alternatives explained to andgave informed consent. The patient had a stable cardiopulmonary status and judged an adequate candidate for conscious sedation. The colonoscope was passed through the anus and advanced to thececum, identified by appendiceal orifice and ileocecal valve. Thecolonoscopy was somewhat difficult due to significant looping. Successfulcompletion of the procedure was aided by increasing the dose of sedation medication, changing the patient's position and applying abdominal pressure. The patient tolerated the procedure fairly well. Thequality of the bowel preparation was good. Complications: No immediate complications. Estimated blood loss: Minimal. Estimated Blood Loss & Specimen: Estimated blood loss was minimal. Specimen collected - Yes and sent to Laboratory Findings: The perianal and digital rectal examinations were normal. The colon (entire examined portion) appeared normal. Biopsies weretaken with a cold forceps for histology. (random) Impressions/Post-Op Diagnosis: - The entire examined colon is normal. Biopsied. Recommendation: - Repeat colonoscopy in 10 years for screening purposes. Moderate Sedation: Moderate (conscious) sedation was administered by the endoscopy nurse and supervised by the endoscopist. The following parameters were monitored: oxygen saturation, heart rate, respiratory rate, adequacyof pulmonary ventilation and reponse to care. Please refer to the patient's medical record flowsheets for moderate sedation details. Jose Elias Malik, 11/06/2017 10:43:27 AM This report has been signed electronically. Note Initiated On: 11/06/2017 10:02 AM Jose Elias Malik MD PROCEDURE ORD Final Re sult from Last 3 Months or Most Recently Relevant to Health Maintenance Advance Directives * Full Code (Latest Code Status on File) Date Activated Date Inactivated Comments 11/06/2017 8:59 AM 11/06/2017 2:56 PM Care Teams Building Construction Professor Relationship Specialty Start Date End Date Tato Guido MD [address], [place] [address] PCP - General Family Practice 08/26/21
[2025-10-29 11:22] LABS: Appearance Urine Clear (Clear)
--- NOTE | 2025-10-29 11:26 | CRLHL7_ITS ---
For Patients: As a result of the Century Cures Act, medical imaging exams and procedure reports are released immediately into your electronic medical record. You may view this report before your referring provider. If you have questions, please contact your health care provider. INDICATION: Persistent dizziness. Left-sided numbness. COMPARISON: None. TECHNIQUE: CT of the head without contrast. FINDINGS: Brain, ventricles, and extra-axial spaces: No acute intracranial hemorrhage. Ruiz-white differentiation is grossly preserved. Size of the ventricles and sulci appears to be commensurate with age. Bones: No acute osseous findings. Visualized paranasal sinuses are clear. Visualized mastoid air cells are clear. IMPRESSION: No acute intracranial noncontrast CT findings. Please note that all CT scans at this facility use dose modulation, iterative reconstruction, and/or weight-based dosing when appropriate to reduce radiation dose to as low as reasonably achievable. Dictated by Abhinav Hale MD @ 10/29/2025 12:29:24 PM (Electronically Signed)
--- NOTE | 2025-10-29 11:26 | CRLHL7_ITS ---
For Patients: As a result of the Century Cures Act, medical imaging exams and procedure reports are released immediately into your electronic medical record. You may view this report before your referring provider. If you have questions, please contact your health care provider. INDICATION: Dizziness, left-sided numbness. TECHNIQUE: CTA head using intravenous contrast with bolus tracking, 3D angiographic rendering using maximum intensity projection (MIP) and images permanently archived. CTA neck using intravenous contrast with bolus tracking, 3D angiographic rendering using maximum intensity projection (MIP) and images permanently archived. FINDINGS: CTA head: There is normal opacification of the intracranial vasculature. There is no large vessel occlusion or significant intracranial stenosis. No aneurysm is identified. CTA neck: There is no significant carotid artery stenosis or dissection. There is no significant vertebral artery stenosis or dissection. There is a 2.5 centimeter indeterminate right thyroid nodule. IMPRESSION: No acute intracranial abnormality at CTA. No significant carotid or vertebral artery stenosis or dissection. Indeterminate right thyroid nodule; correlation with outpatient ultrasound may be helpful for further evaluation if/when clinically appropriate. Please note that all CT scans at this facility use dose modulation, iterative reconstruction, and/or weight-based dosing when appropriate to reduce radiation dose to as low as reasonably achievable. Dictated by Иван Lopez MD @ 10/30/2025 6:18:17 AM (Electronically Signed)
--- NOTE | 2025-10-29 11:26 | CRLHL7_ITS ---
For Patients: As a result of the Century Cures Act, medical imaging exams and procedure reports are released immediately into your electronic medical record. You may view this report before your referring provider. If you have questions, please contact your health care provider. No intracranial large vessel occlusion. Patent cervical arteries without dissection. 15 millimeter right thyroid lobe nodule for which thyroid ultrasound is recommended. Please note that all CT scans at this facility use dose modulation, iterative reconstruction, and/or weight-based dosing when appropriate to reduce radiation dose to as low as reasonably achievable. Dictated by Abhinav Hale MD @ 10/29/2025 12:39:26 PM (Electronically Signed)
--- NOTE | 2025-10-29 11:31 | ED.GENADULT ---
HPI - General Adult General Date Seen: 10/29/25 Chief complaint: Altered Mental Status Stated complaint: Confusion, vertigo Time Seen by Provider: 10/29/25 11:08 Source: patient Mode of arrival: ambulatory Limitations: no limitations History of Present Illness HPI narrative: Patient is a 60-year-old female presenting to the emergency department for multiple neurologic complaints. She states last Monday she began to get vertigo. She states the home would be spinning and she saw her primary care provider. She states no head imaging was done but she was given medication for it which she states did not help. She then was told to starting the Achilles maneuver which she states she did every day. She states seem to be helping if she is getting better day by day. She states she was symptom free after the maneuver on Monday. She was feeling better for a couple days but then went to work today and when she woke up today she felt like symptoms are coming back again. Went to work in symptoms were getting worse so she came to the emergency department. She has been having some issues finding words and then had to call her daughter when she was driving here as the patient was lost and the daughter had a director here. She states she feels like ?her head is all over the place.? Denies ever had symptoms like this before were prior to last week. Also notes over the past few days she has been having some left-sided numbness. He notices it in her left leg and arm and has never had these symptoms before either. She has been able to ambulate but feels like she is going to fall down. Insert denies chest pain, abdominal pain, headache, abdominal pain, nausea. No other concerns noted at this time. Related Data Allergies Allergy/AdvReac Type Severity Reaction Status Date / Time Penicillins Allergy Rash Verified 10/29/25 10:47 Review of Systems Status of ROS: Reports: 10 or more systems reviewed and unremarkable except as noted in History and below Exam Narrative: Exam Narrative: Const: Well-nourished, Well-developed, in mild distress stress, has some difficulty answering questions. Eyes: PERRL, no conjunctival injection, and symmetrical lids HENT: Atraumatic external nose and ears. Moist mucous membranes. Neck: Symmetric, trachea midline, No thyromegaly. CVS: RRR, No murmurs or gallops. Peripheral pulses 2+ and equal in all extremities RESP: Unlabored respiratory effort. Clear to auscultation bilaterally. GI: Nontender/Nondistended, No rebound or guarding. MSK:Extremities w/o deformity, Normal Active ROM Skin: Warm, Dry. No rashes or lesions. Neuro: Normal Muscle tone, Cranial nerves 2-12 grossly intact, normal [id number], normal [id number], normal gait, normal strength 5/5 upper lower extremities bilaterally, decreased sensation upper and lower extremity on the left. Normal sensation on the right., normal rapid alternating movements. Cannot notice any obvious nystagmus. Normal test of skew. Do not know any saccades Psych: Awake, Alert, & Oriented x3. Appropriate mood and affect. Const: Vital Signs, click to edit/add: Vital Signs - 24 hr 10/29/25 10:48 10/29/25 13:11 10/29/25 13:15 Temperature 98.7 F Pulse Rate 56 L 69 Pulse Rate [Pulse Oximeter] 70 Respiratory Rate 18 Blood Pressure Blood Pressure [Ri ght Upper Arm] 160/81 H Pulse Oximetry 100 100 100 Oxygen Delivery Me thod Room Air 10/29/25 13:21 10/29/25 13:21 10/29/25 13:21 Temperature Pulse Rate 58 L 58 L 58 L Pulse Rate [Pulse Oximeter] Respiratory Rate Blood Pressure 120/57 L Blood Pressure [Ri ght Upper Arm] Pulse Oximetry 100 100 100 Oxygen Delivery Me thod 10/29/25 13:21 10/29/25 13:30 10/29/25 13:42 Temperature Pulse Rate 58 L 59 L 57 L Pulse Rate [Pulse Oximeter] Respiratory Rate Blood Pressure 120/57 L 119/55 L Blood Pressure [Ri ght Upper Arm] Pulse Oximetry 100 100 100 Oxygen Delivery Me thod 10/29/25 13:45 10/29/25 14:00 10/29/25 14:02 Temperature Pulse Rate 60 68 58 L Pulse Rate [Pulse Oximeter] Respiratory Rate Blood Pressure 126/73 Blood Pressure [Ri ght Upper Arm] Pulse Oximetry 100 100 100 Oxygen Delivery Me thod Course Vital Signs Vital signs: Initial Vital Signs Temperature 98.7 F 10/29/25 10:48 Temperature Source Temporal Artery Scan 10/29/25 10:48 Pulse Rate 70 10/29/25 10:48 Respiratory Rate 18 10/29/25 10:48 Blood Pressure 160/81 H 10/29/25 10:48 Blood Pressure Mean 107 H 10/29/25 10:48 Pulse Oximetry 100 10/29/25 10:48 Oxygen Delivery Method Room Air 10/29/25 10:48 Vital Signs Temperature 98.7 F 10/29/25 10:48 Pulse Rate 70 10/29/25 10:48 Respiratory Rate 18 10/29/25 10:48 Blood Pressure 160/81 H 10/29/25 10:48 Pulse Oximetry 100 10/29/25 10:48 Oxygen Delivery Method Room Air 10/29/25 10:48 Temperature 98.7 F 10/29/25 10:48 Pulse Rate 58 L 10/29/25 14:02 Respiratory Rate 18 10/29/25 10:48 Blood Pressure 126/73 10/29/25 14:02 Pulse Oximetry 100 10/29/25 14:02 Oxygen Delivery Method Room Air 10/29/25 10:48 Medications Administered Medications: Discontinued Medications Generic Name Dose Route Start Last Admin Trade Name Jose Mq PRN Reason Stop Dose Admin Diazepam 5 mg 10/29/25 13:01 10/29/25 13:07 Diazepam 5 Mg Tablet PO 10/29/25 13:02 5 mg ONCE ONE Administration Lactated Ringer's 1,000 mls @ 1,000 mls/hr 10/29/25 11:26 10/29/25 14:17 Lactated Ringers 1000 Ml IV 10/29/25 12:25 Infused .Q1H ONE Infusion Medical Decision Making MDM Narrative Medical decision making narrative: Patient is a 60-year-old female presenting to the emergency department for multiple neurological complaints. Her main complaint is vertigo. The differential diagnosis of vertigo is broad and includes common etiologies such as menieres disease, labyrinthitis, benign positional vertigo, otitis media, etc. More serious etiologies considered include central etiologies such as tumor, intracerebral bleed, dissection, ischemic cerebral vascular accident. With her left-sided numbness along with the confusion and persistent dizziness I do believe head imaging is indicated. Will do CT head along with CTA head and neck. I also have her remove this concern for intracranial mass so I will also order an MRI brain with contrast. EKG appeared to look for any cardiac arrhythmias. Viral swabs ordered. Will also order BMP, CBC, magnesium, urinalysis, urine drug screen. Lactated Ringer's given for possible dehydration. Lab work shows no acute concerning abnormalities. EKG showed no concerning abnormalities as and then independently by myself. Viral swabs are negative. X-rays within normal limits. No signs of infection. Imaging interpreted by myself and the radiologist shows no acute concerning abnormalities. CTA head and neck did show a 15 mm right thyroid nodule. Outpatient ultrasound recommended. MRI had some mild chronic small-vessel disease. She is doing well at this time but does have dizziness still. Did begin to have some migraine for she says is chronic for her. Declines any in migraine medication at this time. With Meg maneuver helping at home this does seem to be BPPV. Will try some diazepam. On my review vital signs are stable throughout time in in the emergency department. Oximetry stayed in the mid to high 90s. security monitor showed no concerning arrhythmias. Informed her to follow up with her primary care provider. She is agreeable to this plan. Diagnosis: BPPV Lab Data Labs: Lab Results 10/29/25 10/29/25 10/29/25 Range/Units 11:09 11:55 11:58 WBC 6.81 (4.50-11.00) K/uL RBC 4.59 (4.00-5.20) m/uL Hgb 13.7 (12.0-16.0) gm/dL Hct 41.4 (33.0-51.0) % MCV 90 (80-100) fL MCH 30 (26-34) pg MCHC 33 (32-36) gm/dL RDW Coeff of Tomy 12.8 (11.5-15.5) % Plt Count 234 (140-440) K/uL Neut % (Auto) 49.9 (42.0-72.0) % Lymph % (Auto) 42.9 (20-44) % [place] % (Auto) 5.9 (0.0-11.0) % Eos % (Auto) 0.7 (0.0-7.0) % Baso % (Auto) 0.3 (0.0-3.0) % Neut # (Auto) 3.40 (1.7-7.0) K/uL Lymph # (Auto) 2.92 H (0.90-2.90) K/uL [place] # (Auto) 0.40 (0.00-0.90) K/UL Eos # (Auto) 0.05 (0.00-0.50) K/uL Baso # (Auto) 0.02 (0.00-0.30) K/uL Abs Immat Gran (auto) 0.02 (0.00-0.30) K/uL Imm/Tot Granulo (auto) 0.3 % Sodium 136 (135-149) mmol/L Potassium 4.4 (3.6-5.1) mmol/L Chloride 101 (96-114) mmol/L Carbon Dioxide 22 (20-32) mmol/L Anion Gap 13 (7-15) mEq/L BUN 16 (7-30) mg/dL Creatinine 0.7 (0.5-1.5) mg/dL Estimated GFR 98 ml/min Glucose 99 (60-115) mg/dL Calcium 9.3 (8.4-10.6) mg/dL Magnesium 2.1 (1.5-2.6) mg/dL Urine Color Yellow (Yellow) Urine Appearance Clear (Clear) Urine pH 6.5 (5.0-8.5) Ur Specific [place] <= 1.005 (1.000-1.030) Urine Protein Negative (Negative) Urine Glucose (UA) Negative (Negative) Urine Ketones Negative (Negative) Urine Blood Trace-intact A (Negative) Urine Nitrite Negative (Negative) Urine Bilirubin Negative (Negative) Urine Urobilinogen 0.2 (0.2-1.0) Ur Leukocyte Esterase 1+ A (Negative) Urine RBC 0-2 (0-2) Urine WBC 0-2 (0-5) Ur Squamous Epith Cells None (None-Few) Urine Bacteria None (None) Urine Opiates Screen Negative (Negative) Ur Oxycodone Screen Negative (Negative) Urine Methadone Screen Negative (Negative) Ur Barbiturates Screen Negative (Negative) U Tricyclic Antidepress Negative (Negative) Ur Phencyclidine Scrn Negative (Negative) Ur Amphetamines Screen Negative (Negative) U Methamphetamines Scrn Negative (Negative) U Benzodiazepines Scrn Negative (Negative) Urine Cocaine Screen Negative (Negative) U Marijuana (THC) Screen Negative (Negative) Ur Drug Screen Comment See Note SARS-CoV-2 (PCR) Negative SARS-CoV-2 (Negative) Influenza Type A (PCR) Negative PCR FLU A (Negative) Influenza Type B (PCR) Negative PCR FLU B (Negative) RSV (PCR) Negative PCR RSV (Negative) POC Creatinine 0.8 (0.6-1.3) mg/dl Imaging Data CTA head and neck: Attestation: I have reviewed the pertinent imaging results. Radiologist's impression: Preliminary Report: No intracranial large vessel occlusion. Patent cervical arteries without dissection. 15 millimeter right thyroid lobe nodule for which thyroid ultrasound is recommended. Read by:?Abhinav Hale MD @10/29/2025 12:39:[address] scan head: Attestation: I have reviewed the pertinent imaging results. Radiologist's impression: No acute intracranial noncontrast CT findings. Please note that all CT scans at this facility use dose modulation, iterative reconstruction, and/or weight-based dosing when appropriate to reduce radiation dose to as low as reasonably achievable. Dictated by Abhinav Hale MD @ 10/29/2025 12:29:24 PM MR brain: Attestation: I have reviewed the pertinent imaging results. Radiologist's impression: 1. No acute intracranial abnormality. 2. Mild presumed chronic small vessel disease. Dictated by Paul Navarrete MD @ 10/29/2025 12:49:50 PM ECG Data Attestation: I personally reviewed and interpreted this ECG as follows: Prior ECG tracings: not available for review Interpretation: Sinus bradycardia with a short OK interval, otherwise normal intervals, normal axis, no ST or T-wave abnormalities. Discharge Plan Discharge Clinical Impression: Benign paroxysmal positional vertigo Qualifiers: Laterality: unspecified laterality Qualified Code(s): H81.10 - Benign paroxysmal vertigo, unspecified ear Patient Disposition: Home, Self-Care Condition: Stable Instructions: Benign Paroxysmal Positional Vertigo (ED) Additional Instructions: I believe your symptoms are from a peripheral (inner ear) cause. PET imaging both CT scans and MRI showed no acute abnormalities within the brain. I do recommend close follow-up with the primary care provider about your persistent symptoms. Also note a nodule was seen on your thyroid. Is recommended you get follow-up ultrasound for this. Follow Up/Referrals: Provider,Not a Local [Non-Staff, Family Practice] Stand Alone Forms: MyHealth Info Instructions
[2025-10-29 11:32] LABS: Cannabinoid Screen Urine Negative (Negative); Methamphetamines Screen Urine Negative (Negative); Tricyclic Antidepressant Urine Negative (Negative)
--- NOTE | 2025-10-29 11:57 | CRLHL7_ITS ---
For Patients: As a result of the Century Cures Act, medical imaging exams and procedure reports are released immediately into your electronic medical record. You may view this report before your referring provider. If you have questions, please contact your health care provider. Indication: Left-sided dizziness, numbness, and confusion. Technique: Noncontrast sagittal T1 weighted, axial FLAIR, axial T2 weighted, and axial diffusion weighted sequences are provided. Comparison: CT head 10/29/2025 Findings: The ventricles, sulci and gyri are normal size, shape and contour for age. There are multiple scattered foci of T2 prolongation in the subcortical white matter of both cerebral hemispheres. The midline structures are centrally located with no evidence of shift. There are no suspicious intra or extra-axial fluid collections. No region of restricted diffusion. Expected flow voids in the cavernous carotids and basilar artery. The pituitary gland, optic chiasm, pineal gland, and cerebellar tonsils are unremarkable. Impression: 1. No acute intracranial abnormality. 2. Mild presumed chronic small vessel disease. Dictated by Paul Navarrete MD @ 10/29/2025 12:49:50 PM (Electronically Signed)
[2025-10-29 12:04] LABS: Hematocrit* 41.4 % (33.0-51.0); Hemoglobin* 13.7 gm/dL (12.0-16.0); Immature Granulocytes Abs Auto 0.02 K/uL (0.00-0.30); Immature Granulocytes Pct Auto 0.3 %; Lymphocytes Absolute Auto 2.92 K/uL (0.90-2.90); Mean Corpuscular HGB Conc 33 gm/dL (32-36); Mean Corpuscular Hemoglobin 30 pg (26-34); Mean Corpuscular Volume 90 fL (80-100); RDW Coefficient of Variation % 12.8 % (11.5-15.5); Red Blood Count* 4.59 m/uL (4.00-5.20); White Blood Count* 6.81 K/uL (4.50-11.00)
[2025-10-29 12:08] LABS: Slide Review Reflex No
[2025-10-29 12:18] LABS: Creatinine, Point-of-Care* 0.8 mg/dl (0.6-1.3)
[2025-10-29 12:22] LABS: Chloride* 101 mmol/L (96-114); Potassium* 4.4 mmol/L (3.6-5.1); Sodium* 136 mmol/L (135-149)
[2025-10-29 12:25] LABS: Anion Gap 13 mEq/L (7-15); Blood Urea Nitrogen* 16 mg/dL (7-30); Carbon Dioxide* 22 mmol/L (20-32); Creatinine* 0.7 mg/dL (0.5-1.5); Estimated Glomerular Filt Rate 98 ml/min
[2025-10-29 12:26] LABS: Calcium* 9.3 mg/dL (8.4-10.6); Glucose* 99 mg/dL (60-115)
[2025-10-29 12:42] LABS: PCR FLU A Negative PCR FLU A (Negative); PCR FLU B Negative PCR FLU B (Negative); PCR RSV Negative PCR RSV (Negative); SARS PCR* Negative SARS-CoV-2 (Negative)
[2025-10-29] MEDS: LACTATED RINGERS 1000 ML 1,000 ML IV (13:03)
== END 2025-10-29 14:17 | disposition home or self-care (01) ==
PROVIDERS: Emergency Provider Student in an Organized Health Care Education/Training Program; PCP Physician Assistant
DX: H81.12 Benign paroxysmal vertigo, left ear (principal); G43.909 Migraine, unspecified, not intractable, without status migrainosus; R00.1 Bradycardia, unspecified
CPT/HCPCS: 36415; 70450; 70496; 70498; 70551; 80048; 80306; 81001; 82565; 83735; 85025; 87086; 87631; 93005; 96360; 99284; 99285; J7120; Q9967